=== PATIENT | male | born 1935 | race Caucasian/White ===

== ENCOUNTER → 2016-09-27 | Outpatient (REF) | payer MEDICARE, BC ==
[2016-09-27 11:46] LABS: ALBUMIN 3.3 GM/DL (3.2-5.2); ALBUMIN/GLOBULIN RATIO 1.14 (1.00-1.93); BILIRUBIN,TOTAL 0.4 MG/DL (0.2-1.0); CALCIUM LEVEL 8.9 MG/DL (8.8-10.2); CREATININE FOR GFR 1.56 MG/DL (0.70-1.30); GLOMERULAR FILTRATION RATE 45.7 (>35); POTASSIUM SERUM 4.5 MEQ/L (3.5-5.1); TOTAL PROTEIN 6.2 GM/DL (6.4-8.2); URIC ACID 4.1 MG/DL (3.5-7.2)
== END ==
LOC: M SFHCCLAY 07:36
PROVIDERS: ATTEND Family Medicine
DX: E11.9 Type 2 diabetes mellitus without complications (principal); E78.5 Hyperlipidemia, unspecified; M10.9 Gout, unspecified

== ENCOUNTER → 2016-10-24 | Outpatient (REF) | payer MEDICARE, BC ==
[2016-10-24 16:54] LABS: BASO % 0.3 % (0.0-1.0); EOS % 0.6 % (0.0-3.0); LARGE UNSTAINED CELL # 0.1 K/mm3 (0.0-0.4); LARGE UNSTAINED CELL % 2.2 % (0.0-4.0); LYMPH # 1.8 K/mm3 (1.5-4.5); LYMPH % 25.1 % (24.0-44.0); MEAN CORPUSCULAR HEMOGLOBIN 30.6 pg (27.0-33.0); MONO # 0.4 K/mm3 (0.0-0.8); MONO % 6.5 % (0.0-5.0); NEUTROPHILS # 4.2 K/mm3 (1.8-7.7); NEUTROPHILS % 65.4 % (36.0-66.0); PLATELET COUNT, AUTOMATED 199 k/mm3 (150-450); RED CELL DISTRIBUTION WIDTH 14.8 % (11.5-14.5); WHITE BLOOD COUNT 6.4 K/mm3 (4.0-10.0)
== END ==
LOC: M LABDRAWC 16:34
PROVIDERS: ATTEND Internal Medicine Cardiovascular Disease
DX: E11.9 Type 2 diabetes mellitus without complications (principal)

== ENCOUNTER → 2016-11-14 | Outpatient (REF) | payer MEDICARE, BC ==
[2016-11-14 12:32] LABS: CALCIUM LEVEL 9.8 MG/DL (8.8-10.2); CREATININE FOR GFR 2.17 MG/DL (0.70-1.30); GLOMERULAR FILTRATION RATE 31.2 (>35); POTASSIUM SERUM 4.3 MEQ/L (3.5-5.1)
== END ==
LOC: M LABDRAWC 11:39
PROVIDERS: ATTEND Nurse Practitioner Adult Health
DX: I50.22 Chronic systolic (congestive) heart failure (principal); R06.02 Shortness of breath

== ENCOUNTER → 2016-12-19 | Outpatient (REF) | payer MEDICARE, BC ==
[2016-12-19 12:42] LABS: CALCIUM LEVEL 9.2 MG/DL (8.8-10.2); CREATININE FOR GFR 1.81 MG/DL (0.70-1.30); GLOMERULAR FILTRATION RATE 38.4 (>35); POTASSIUM SERUM 4.5 MEQ/L (3.5-5.1)
== END ==
LOC: M SFHCCLAY 06:57
PROVIDERS: ATTEND Family Medicine
DX: E11.9 Type 2 diabetes mellitus without complications (principal)

== ENCOUNTER → 2016-12-29 | Outpatient (REF) | payer MEDICARE, BC ==
[2016-12-29 12:42] LABS: CALCIUM LEVEL 8.8 MG/DL (8.8-10.2); CREATININE FOR GFR 1.55 MG/DL (0.70-1.30); GLOMERULAR FILTRATION RATE 45.9 (>35); POTASSIUM SERUM 4.5 MEQ/L (3.5-5.1)
== END ==
LOC: M LABDRAWC 11:27
PROVIDERS: ATTEND Nurse Practitioner Adult Health
DX: R06.02 Shortness of breath (principal); I42.0 Dilated cardiomyopathy; I50.22 Chronic systolic (congestive) heart failure

== ENCOUNTER → 2017-02-06 | Outpatient (CLI) | payer MEDICARE, BC ==
--- NOTE | 2017-02-06 15:09 | REP ---
CHEST, TWO VIEWS: Two views of the chest are performed. Comparison 05/31/2016. There is mild cardiomegaly. There is no acute infiltrate. There is calcified ectatic aorta. Left pacemaker is noted. There are degenerative changes of the spine. IMPRESSION: Mild cardiomegaly. No acute pulmonary disease.
== END ==
LOC: M CLY 14:11
PROVIDERS: ATTEND Family Medicine
DX: R05 Cough (principal)

== ENCOUNTER → 2017-04-20 | Outpatient (REF) | payer MEDICARE, BC ==
[2017-04-20 12:11] LABS: CREATININE FOR GFR 1.73 MG/DL (0.70-1.30); GLOMERULAR FILTRATION RATE 40.5 (>35); POTASSIUM SERUM 4.7 MEQ/L (3.5-5.1)
== END ==
LOC: M SFHCCLAY 06:56
PROVIDERS: ATTEND Family Medicine
DX: E11.9 Type 2 diabetes mellitus without complications (principal)

== ENCOUNTER → 2017-07-27 | Outpatient (CLI) | payer MEDICARE, BC ==
--- NOTE | 2017-07-27 11:32 | REP ---
Clinical: Cough. Technique: PA and lateral. Comparison: 02/06/2017. Findings: Mediastinum and cardiac silhouette are stable. Cardiomegaly is again appreciated and unchanged. Lung merrill demonstrate chronic interstitial changes without acute consolidation, effusion, or pneumothorax. Skeletal structures demonstrate age-related degenerative changes. Impression: Chronic stable changes. No acute cardiopulmonary process. Signed by Maxwell Murphy MD 07/27/2017 11:24 A
== END ==
LOC: M CLY 10:59
PROVIDERS: ATTEND Nurse Practitioner Family
DX: R05 Cough (principal); R50.9 Fever, unspecified; I51.7 Cardiomegaly; J98.4 Other disorders of lung

== ENCOUNTER → 2017-07-27 | Outpatient (REF) | payer MEDICARE, BC ==
[2017-07-27 16:32] LABS: BASO % 0.3 % (0.0-1.0); IMMATURE GRANULOCYTE % 0.5 % (0-0); LYMPH # 0.9 10^3/uL (1.5-4.5); MEAN CORPUSCULAR HEMOGLOBIN 29.6 pg (27.0-33.0); MEAN CORPUSCULAR HGB CONC 32.5 g/dl (32.0-36.5); MEAN CORPUSCULAR VOLUME 91.2 fl (80.0-96.0); MONO # 0.4 10^3/uL (0.0-0.8); MONO % 5.9 % (0.0-5.0); NEUTROPHILS # 5.1 10^3/uL (1.8-7.7); NEUTROPHILS % 79.3 % (36.0-66.0); PLATELET COUNT, AUTOMATED 227 10^3/uL (150-450); WHITE BLOOD COUNT 6.4 10^3/uL (4.0-10.0)
[2017-07-27 20:17] LABS: CALCIUM LEVEL 10.3 MG/DL (8.8-10.2); CREATININE FOR GFR 2.78 MG/DL (0.70-1.30); GLOMERULAR FILTRATION RATE 23.4 (>35); POTASSIUM SERUM 4.8 MEQ/L (3.5-5.1)
== END ==
LOC: M SFHCCLAY 10:46
PROVIDERS: ATTEND Nurse Practitioner Family
DX: R05 Cough (principal); R50.9 Fever, unspecified

== ENCOUNTER → 2017-07-31 | Outpatient (REF) | payer MEDICARE, BC ==
[2017-07-31 18:56] LABS: CALCIUM LEVEL 9.1 MG/DL (8.8-10.2); CREATININE FOR GFR 2.27 MG/DL (0.70-1.30); GLOMERULAR FILTRATION RATE 29.6 (>35); POTASSIUM SERUM 4.4 MEQ/L (3.5-5.1)
== END ==
LOC: M SFHCCLAY 10:54
PROVIDERS: ATTEND Family Medicine
DX: N18.3 Chronic kidney disease, stage 3 (moderate) (principal)
CPT/HCPCS: 80048; G0463

== ENCOUNTER → 2017-08-07 | Outpatient (REF) | payer MEDICARE, BC ==
[2017-08-07 12:23] LABS: CALCIUM LEVEL 9.8 MG/DL (8.8-10.2); CREATININE FOR GFR 1.95 MG/DL (0.70-1.30); GLOMERULAR FILTRATION RATE 35.2 (>35); POTASSIUM SERUM 4.9 MEQ/L (3.5-5.1)
== END ==
LOC: M SFHCCLAY 08:34
PROVIDERS: ATTEND Family Medicine
DX: N18.3 Chronic kidney disease, stage 3 (moderate) (principal)

== ENCOUNTER → 2017-10-18 | Outpatient (REF) | payer MEDICARE, BC ==
[2017-10-18 12:01] LABS: ALBUMIN/GLOBULIN RATIO 0.86 (1.00-1.93); ALKALINE PHOSPHATASE 79 U/L (45-117); ALT/SGPT 73 U/L (12-78); ANION GAP 6 MEQ/L (8-16); AST/SGOT 26 U/L (7-37); BILIRUBIN,TOTAL 0.2 MG/DL (0.2-1.0); BLOOD UREA NITROGEN 46 MG/DL (7-18); CALCIUM LEVEL 9.2 MG/DL (8.8-10.2); CARBON DIOXIDE LEVEL 33 MEQ/L (21-32); CHLORIDE LEVEL 101 MEQ/L (98-107); CHOLESTEROL LEVEL 160 MG/DL (<200); CHOLESTEROL RISK RATIO 3.404 (<5); CREATININE FOR GFR 2.58 MG/DL (0.70-1.30); GLOMERULAR FILTRATION RATE 25.5 (>35); GLUCOSE, FASTING 147 MG/DL (70-100); HDL CHOLESTEROL 47 MG/DL (>40); LDL CHOLESTEROL 80.4 MG/DL (<100); NON-HDL-C 113 MG/DL; POTASSIUM SERUM 4.7 MEQ/L (3.5-5.1); SODIUM LEVEL 140 MEQ/L (136-145); TOTAL PROTEIN 6.5 GM/DL (6.4-8.2); TRIGLYCERIDES LEVEL 163 MG/DL (<150)
[2017-10-18 12:19] LABS: ESTIMATED AVERAGE GLUCOSE 171 MG/DL (60-110); HEMOGLOBIN A1c 7.6 %
== END ==
LOC: M SFHCCLAY 07:06
DX: E11.9 Type 2 diabetes mellitus without complications (principal)
CPT/HCPCS: 80053

== ENCOUNTER → 2017-10-30 | Outpatient (REF) | payer MEDICARE, BC ==
[2017-10-30 19:11] LABS: FERRITIN 30 NG/ML (26-388); IRON (FE) 48 UG/DL (65-175); PERCENT SATURATION 14.3 % (19.7-50.0); TOTAL IRON BINDING CAPACITY 336 UG/DL (250-450)
== END ==
LOC: M LAB REF 17:23
DX: D50.9 Iron deficiency anemia, unspecified (principal)
CPT/HCPCS: 83550

== ENCOUNTER → 2017-11-16 | Outpatient (REF) | payer MEDICARE, BC ==
[2017-11-16 18:48] LABS: VITAMIN B12 LEVEL 544 PG/ML (247-911)
== END ==
LOC: M LAB REF 17:16
DX: D53.1 Other megaloblastic anemias, not elsewhere classified (principal)
CPT/HCPCS: 82607

== ENCOUNTER → 2017-12-26 | Outpatient (REF) | payer MEDICARE, BC ==
[2017-12-26 14:46] LABS: FREE T4 0.19 NG/DL (0.76-1.46)
== END ==
LOC: M LAB REF 13:19
DX: E03.9 Hypothyroidism, unspecified (principal)
CPT/HCPCS: 84443

== ENCOUNTER → 2018-04-11 | Outpatient (REF) | payer MEDICARE, BC ==
[2018-04-11 12:03] LABS: ESTIMATED AVERAGE GLUCOSE 171 MG/DL (60-110); HEMOGLOBIN A1c 7.6 %
[2018-04-11 12:10] LABS: ALBUMIN 2.9 GM/DL (3.2-5.2); ALBUMIN/GLOBULIN RATIO 0.88 (1.00-1.93); ALKALINE PHOSPHATASE 76 U/L (45-117); ALT/SGPT 17 U/L (12-78); ANION GAP 9 MEQ/L (8-16); AST/SGOT 10 U/L (7-37); BILIRUBIN,TOTAL 0.3 MG/DL (0.2-1.0); BLOOD UREA NITROGEN 37 MG/DL (7-18); CALCIUM LEVEL 8.7 MG/DL (8.8-10.2); CARBON DIOXIDE LEVEL 29 MEQ/L (21-32); CHLORIDE LEVEL 105 MEQ/L (98-107); CREATININE FOR GFR 2.28 MG/DL (0.70-1.30); GLOMERULAR FILTRATION RATE 29.3 (>35); GLUCOSE, FASTING 220 MG/DL (70-100); POTASSIUM SERUM 3.9 MEQ/L (3.5-5.1); SODIUM LEVEL 143 MEQ/L (136-145); TOTAL PROTEIN 6.2 GM/DL (6.4-8.2)
== END ==
LOC: M SFHCCLAY 07:01
DX: E11.22 Type 2 diabetes mellitus with diabetic chronic kidney disease (principal); E03.9 Hypothyroidism, unspecified
CPT/HCPCS: 84443

== ENCOUNTER → 2018-05-10 | Outpatient (REF) | payer MEDICARE, BC | LOC: M SFHCCLAY 06:57 | DX: E03.9 Hypothyroidism, unspecified (principal) | CPT/HCPCS: 84443 ==

== ENCOUNTER → 2018-05-18 | Outpatient (CLI) | payer MEDICARE, BC ==
[2018-05-18 16:57] LABS: BASO % 0.3 % (0.0-1.0); EOS % 0.2 % (0.0-3.0); HEMATOCRIT 40.5 % (42.0-52.0); HEMOGLOBIN 13.2 g/dl (13.5-17.5); IMMATURE GRANULOCYTE % 0.4 % (0-3.0); LYMPH # 0.9 10^3/uL (1.5-4.5); LYMPH % 9.1 % (24.0-44.0); MEAN CORPUSCULAR HEMOGLOBIN 28.7 pg (27.0-33.0); MEAN CORPUSCULAR HGB CONC 32.6 g/dl (32.0-36.5); MONO # 0.6 10^3/uL (0.0-0.8); MONO % 5.9 % (0.0-5.0); NEUTROPHILS # 8.3 10^3/uL (1.8-7.7); NEUTROPHILS % 84.1 % (36.0-66.0); PLATELET COUNT, AUTOMATED 222 10^3/uL (150-450); RED CELL DISTRIBUTION WIDTH 13.8 % (11.5-14.5); WHITE BLOOD COUNT 9.8 10^3/uL (4.0-10.0)
[2018-05-18 17:27] LABS: ALBUMIN 2.8 GM/DL (3.2-5.2); ALBUMIN/GLOBULIN RATIO 0.82 (1.00-1.93); ALKALINE PHOSPHATASE 86 U/L (45-117); ALT/SGPT 27 U/L (12-78); ANION GAP 9 MEQ/L (8-16); AST/SGOT 20 U/L (7-37); BILIRUBIN,TOTAL 0.6 MG/DL (0.2-1.0); BLOOD UREA NITROGEN 41 MG/DL (7-18); CARBON DIOXIDE LEVEL 29 MEQ/L (21-32); CHLORIDE LEVEL 100 MEQ/L (98-107); CREATININE FOR GFR 2.04 MG/DL (0.70-1.30); GLOMERULAR FILTRATION RATE 33.4 (>35); GLUCOSE, FASTING 312 MG/DL (70-100); POTASSIUM SERUM 4.3 MEQ/L (3.5-5.1); SODIUM LEVEL 138 MEQ/L (136-145); TOTAL PROTEIN 6.2 GM/DL (6.4-8.2)
== END ==
LOC: M CLY 11:52
DX: R10.32 Left lower quadrant pain (principal)
CPT/HCPCS: 80053

== ENCOUNTER → 2018-05-18 | Outpatient (CLI) | payer MEDICARE, BC | LOC: M CLY 13:55 | DX: R10.32 Left lower quadrant pain (principal) | CPT/HCPCS: 74021; 80053 ==

== ENCOUNTER → 2018-06-27 | Outpatient (REF) | payer MEDICARE, BC ==
[2018-06-27 11:48] LABS: ESTIMATED AVERAGE GLUCOSE 237 MG/DL (60-110); HEMOGLOBIN A1c 9.9 %
[2018-06-27 12:19] LABS: ALBUMIN 2.7 GM/DL (3.2-5.2); ALKALINE PHOSPHATASE 100 U/L (45-117); ALT/SGPT 22 U/L (12-78); ANION GAP 10 MEQ/L (8-16); AST/SGOT 17 U/L (7-37); BILIRUBIN,TOTAL 0.4 MG/DL (0.2-1.0); BLOOD UREA NITROGEN 24 MG/DL (7-18); CALCIUM LEVEL 8.7 MG/DL (8.8-10.2); CARBON DIOXIDE LEVEL 27 MEQ/L (21-32); CHLORIDE LEVEL 103 MEQ/L (98-107); GLOMERULAR FILTRATION RATE 27.7 (>35); GLUCOSE, FASTING 230 MG/DL (70-100); POTASSIUM SERUM 4.2 MEQ/L (3.5-5.1); SODIUM LEVEL 140 MEQ/L (136-145); TOTAL PROTEIN 5.7 GM/DL (6.4-8.2)
[2018-06-30 00:08] LABS: VITAMIN D 1,25 DIHYDROXY 20.7 pg/mL (19.9-79.3)
== END ==
LOC: M SFHCCLAY 07:48
DX: N18.4 Chronic kidney disease, stage 4 (severe) (principal); E11.22 Type 2 diabetes mellitus with diabetic chronic kidney disease; E03.9 Hypothyroidism, unspecified; E55.9 Vitamin D deficiency, unspecified
CPT/HCPCS: 84443

== ENCOUNTER → 2018-08-17 | Outpatient (REF) | payer MEDICARE, BC ==
[2018-08-17 16:37] LABS: ALKALINE PHOSPHATASE 95 U/L (45-117); ALT/SGPT 17 U/L (12-78); ANION GAP 8 MEQ/L (8-16); AST/SGOT 14 U/L (7-37); BILIRUBIN,TOTAL 0.5 MG/DL (0.2-1.0); BLOOD UREA NITROGEN 31 MG/DL (7-18); CALCIUM LEVEL 8.5 MG/DL (8.8-10.2); CARBON DIOXIDE LEVEL 29 MEQ/L (21-32); CHLORIDE LEVEL 105 MEQ/L (98-107); CREATININE FOR GFR 2.24 MG/DL (0.70-1.30); GLUCOSE, FASTING 157 MG/DL (70-100); POTASSIUM SERUM 4.2 MEQ/L (3.5-5.1); SODIUM LEVEL 142 MEQ/L (136-145); TOTAL PROTEIN 6.2 GM/DL (6.4-8.2)
[2018-08-17 16:38] LABS: ALBUMIN 2.8 GM/DL (3.2-5.2); ALBUMIN/GLOBULIN RATIO 0.82 (1.00-1.93); THYROID STIMULATING HORMONE 0.332 uIU/ML (0.358-3.740)
[2018-08-17 17:13] LABS: ESTIMATED AVERAGE GLUCOSE 226 MG/DL (60-110); HEMOGLOBIN A1c 9.5 %
== END ==
LOC: M SFHCCLAY 10:15
DX: D75.1 Secondary polycythemia (principal); E11.22 Type 2 diabetes mellitus with diabetic chronic kidney disease; E03.9 Hypothyroidism, unspecified
CPT/HCPCS: 84443

== ENCOUNTER → 2018-10-25 | Outpatient (REF) | payer MEDICARE, BC ==
[2018-10-25 16:52] LABS: BASO % 0.2 % (0.0-1.0); HEMATOCRIT 36.7 % (42.0-52.0); HEMOGLOBIN 11.1 g/dl (13.5-17.5); LYMPH % 2.2 % (24.0-44.0); MEAN CORPUSCULAR HEMOGLOBIN 24.7 pg (27.0-33.0); MEAN CORPUSCULAR HGB CONC 30.2 g/dl (32.0-36.5); MEAN CORPUSCULAR VOLUME 81.7 fl (80.0-96.0); MONO # 0.2 10^3/uL (0.0-0.8); MONO % 2.2 % (0.0-5.0); NEUTROPHILS # 9.3 10^3/uL (1.8-7.7); NEUTROPHILS % 94.9 % (36.0-66.0); PLATELET COUNT, AUTOMATED 233 10^3/uL (150-450); RED BLOOD COUNT 4.49 10^6/uL (4.30-6.10); WHITE BLOOD COUNT 9.7 10^3/uL (4.0-10.0)
[2018-10-25 17:08] LABS: LYMPH # 0.2 10^3/uL (1.5-4.5)
[2018-10-25 17:21] LABS: ALBUMIN 2.9 GM/DL (3.2-5.2); BILIRUBIN,TOTAL 0.8 MG/DL (0.2-1.0); CALCIUM LEVEL 8.8 MG/DL (8.8-10.2); CREATININE FOR GFR 2.05 MG/DL (0.70-1.30); GLOMERULAR FILTRATION RATE 33.2 (>35); POTASSIUM SERUM 5.2 MEQ/L (3.5-5.1); TOTAL PROTEIN 6.8 GM/DL (6.4-8.2)
== END ==
LOC: M SFHCCLAY 13:36
PROVIDERS: ATTEND Family Medicine
DX: R50.9 Fever, unspecified (principal)

== ENCOUNTER → 2018-10-25 | Outpatient (CLI) | payer MEDICARE, BC ==
[~2018-10-25] MED LIST: AMIO200T PO; BENZ-18 PO; FEBU40TA PO; FLOM0.4C39 PO; HUMA100I3 SC; LIPI10TA PO; MIRA3350 PO; NITR4TASL SL; PROAAER10 INH; SYNT125T PO; TORS10TA3 PO; TRAD5TAB PO; TRUL10IN SC; XARE10TA PO
--- NOTE | 2018-10-25 14:33 | REP ---
Chest two views HISTORY: Cough Comparison: 07/27/2017 An increase in interstitial markings is present in the lungs consistent with chronic interstitial change. The cardiac silhouette is enlarged. The pulmonary vasculature is normal in appearance. The bony structure is intact. A pacemaker is present. IMPRESSION: 1. Chronic interstitial change. 2. Cardiomegaly.
== END ==
LOC: M CLY 13:56
PROVIDERS: ATTEND Family Medicine
DX: R91.8 Other nonspecific abnormal finding of lung field (principal); I51.7 Cardiomegaly; R05 Cough; Z95.0 Presence of cardiac pacemaker
CPT/HCPCS: 71046; 80053; 85025; G0463

== ENCOUNTER 2018-11-16 15:20 | Inpatient (IN) | payer MEDICARE, BC ==
[~2018-11-16] VITALS: Ht 167.6 cm; Wt 85.2 kg
[2018-11-16 16:30] VITALS: BP 120/79
[2018-11-16] MEDS ORDERED: GLUCOSE 4 GM CHEW TABLET PO PRN (17:45)
[2018-11-16] MEDS ORDERED: ACETAMINOPHEN TAB 650MG DOSE (2X325MG) PO PRN (17:45)
[2018-11-16] MEDS ORDERED: GLUCAGON FOR INJ 1 MG VIAL (J1610) SC PRN (17:45)
[2018-11-16] MEDS ORDERED: DEXTROSE 50% 50 ML SYRINGE IV PRN (17:45)
[2018-11-16] MEDS ORDERED: MIRA3350 PO (18:13)
[2018-11-16] MEDS ORDERED: BENZ-18 PO (18:13)
[2018-11-16] MEDS ORDERED: XARE10TA PO (18:13)
[2018-11-16] MEDS ORDERED: FEBU40TA PO (18:13)
[2018-11-16] MEDS ORDERED: SYNT125T PO (18:13)
[2018-11-16] MEDS ORDERED: PROAAER10 INH (18:13)
[2018-11-16] MEDS ORDERED: LIPI10TA PO (18:13)
[2018-11-16] MEDS ORDERED: AMIO200T PO (18:13)
[2018-11-16] MEDS ORDERED: TRAD5TAB PO (18:13)
[2018-11-16] MEDS ORDERED: NITR4TASL SL (18:13)
[2018-11-16] MEDS ORDERED: TRUL10IN SC (18:13)
[2018-11-16] MEDS ORDERED: TORS10TA3 PO (18:13)
[2018-11-16] MEDS ORDERED: HUMA100I3 SC (18:14)
[2018-11-16] MEDS ORDERED: FLOM0.4C39 PO (18:14)
[2018-11-16 18:27] LABS: BASO % 0.4 % (0.0-1.0); EOS # 0.1 10^3/uL (0.0-0.50); EOS % 0.9 % (0.0-3.0); HEMATOCRIT 30.5 % (42.0-52.0); HEMOGLOBIN 9.4 g/dl (13.5-17.5); LYMPH % 17.3 % (24.0-44.0); MEAN CORPUSCULAR HEMOGLOBIN 24.3 pg (27.0-33.0); MEAN CORPUSCULAR HGB CONC 30.8 g/dl (32.0-36.5); MEAN CORPUSCULAR VOLUME 78.8 fl (80.0-96.0); MONO # 0.5 10^3/uL (0.0-0.8); PLATELET COUNT, AUTOMATED 277 10^3/uL (150-450); RED BLOOD COUNT 3.87 10^6/uL (4.30-6.10); WHITE BLOOD COUNT 5.5 10^3/uL (4.0-10.0)
[2018-11-16] MEDS ORDERED: MIRALAX *UNIT DOSE* 17GM PACKET PO PRN (18:30)
[2018-11-16] MEDS ORDERED: BENZONATATE 100 MG CAP PO PRN (18:30)
[2018-11-16] MEDS ORDERED: ALBUTEROL 90 MCG/ACT 8GM HFA INHALER INH PRN (18:30)
[2018-11-16 18:44] LABS: CALCIUM LEVEL 8.4 MG/DL (8.8-10.2); CREATININE FOR GFR 1.97 MG/DL (0.70-1.30); GLOMERULAR FILTRATION RATE 34.7 (>35); POTASSIUM SERUM 4.3 MEQ/L (3.5-5.1)
--- NOTE | 2018-11-16 20:13 | CR ---
DATE OF CONSULTATION: 11/16/2018 CONSULTANTS: Dr. Oh for Urology. CONCLUSIONS: 1. History of apparent left renal cell carcinoma, metastatic, undergoing systemic therapy in [place], probable immunotherapy with recent development of gross hematuria with clots. 2. Atrial fibrillation, on Xarelto. 3. Insulin-dependent diabetes mellitus. 4. Hypothyroidism. 5. History of prior pacemaker defibrillator placement for atrial fibrillation. RECOMMENDATIONS: 1. Discontinue Xarelto and observe patient's hematuria . 2. If patient's hematuria resolves, then would followup with his oncologist in [place]. 3. If patient's hematuria does not resolve with cessation of anticoagulant therapy, then consideration should be given to the possibility of carrying out left renal embolization. This procedure is not available at this hospital. The patient would need to be transferred to his oncologist in [place] to make arrangements to carry this out. DISCUSSION: The patient is an 82-year-old male who approximately 2 years ago was found to have evidence of a mass in the left kidney. It is unclear from the patient and the as to how this was discovered. The patient had initial biopsy carried out percutaneously that was reportedly negative. Subsequent biopsy apparently did show evidence of malignancy, although there is some confusion on the part of the patient and his as to what type this is. He has been receiving systemic infusions in [place] by his oncologist. This is presumed to be immunotherapy. The patient has been feeling fairly well until recently when he developed the onset of gross hematuria yesterday morning. Last night, he developed increasing hematuria with clots, was unable to void. [facility] Barrera [facility] was placed and his bladder was decompressed. His hematuria seems to be improving since then. He is on Xarelto for atrial fibrillation and coronary artery disease. He has sustained no trauma. He has had no dysuria. He has had no fever. He has had no flank nor abdominal pain. PHYSICAL EXAMINATION: Pleasant, cooperative male, conversive, lying in bed in no distress. Back reveals no costovertebral angle (CVA) tenderness. His abdomen is protuberant but soft and nontender. Barrera catheter is in place draining slightly blood-tinged urine. Bladder is not distended to palpation or percussion. LABORATORY RESULTS: Creatinine is 1.97, BUN is 31, platelet count is 277,000. Hemoglobin is 9.4 grams, hematocrit is 30.5%, white blood cell count is 5500. CT scan was reportedly performed at the [facility], which showed a mass in the left kidney, retroperitoneal adenopathy and pleural effusions. I do not have these images nor the report to review.
[2018-11-16] MEDS: TAMSULOSIN 0.4 MG CAP PO SCH (20:18)
[2018-11-16] MEDS: ATORVASTATIN 10 MG TAB PO SCH (20:18)
[2018-11-16] MEDS: HumaLOG INSULIN (NovoLOG) PER UNIT SC SCH (20:18)
[2018-11-16 22:00] VITALS: BP 107/58
--- NOTE | 2018-11-16 22:52 | HPE ---
DATE OF ADMISSION: 11/16/2018 CHIEF COMPLAINT: Hematuria at [facility] HISTORY OF PRESENT ILLNESS: This is an 82-year-old gentleman with past medical history of atrial fibrillation, sick sinus syndrome, status post pacemaker, diabetes, gout, benign prostatic hypertrophy (BPH) with recently diagnosed what appears to be metastatic renal cell carcinoma who presents with transfer from [facility] for hematuria. The patient reportedly has this new diagnosis of renal cell carcinoma since July of last year. Per the patient and his , he has had multiple biopsies which have not entirely been conclusive. However, sought a consultation with Dr. Denise in [place] at the cancer center and they decided to proceed with immunotherapy. The patient's declined any chemotherapy. He apparently has already received one dose of immunotherapy at [place]. The patient started having gross hematuria since yesterday and went to [facility] for further evaluation today. They called for transfer of this patient as they did not have urologic services there. I asked the provider at [facility] to reach Dr. Denise at [place] as I felt this was likely an oncologic problem from newly diagnosed renal cell carcinoma. However, Dr. Denise said that we could proceed with transferring the patient here since it is closer and urology and nephrology consult should be sufficient. At this time, the patient denies any complaints and is not having any pain. His primary complaint is hematuria for which he has a leg bag Barrera catheter that was placed at [facility]. REVIEW OF SYSTEMS: Negative 14 out of 14 systems, except as noted above. PAST MEDICAL HISTORY: As noted above in the history of present illness. PAST SURGICAL HISTORY: The patient has a history of carpal tunnel surgery and back surgery, as well as knee meniscal surgery, mastoidectomy, pacemaker placement, history of nasal tip plasty. MEDICATIONS: The patient's medications are reconciled by the med historian and he is currently on: - lispro sliding scale, - nitroglycerine sublingual as needed for chest pain - torsemide 10 mg daily - Tradjenta 5 mg by mouth daily - Trulicity 0.75 mg subcutaneous every week - albuterol 2 puffs every 4 hours as needed for shortness of breath - amiodarone 200 mg by mouth daily - Lipitor 10 mg by mouth at bedtime (q.h.s.) - benzonatate 100 mg by mouth three times a day as needed for cough - Uloric 40 mg by mouth daily - Synthroid 125 mcg by mouth every a.m. - MiraLAX one packet by mouth daily as needed for constipation - tamsulosin 0.4 mg by mouth at bedtime (q.h.s.) ALLERGIES: The patient is allergic to shellfish. SOCIAL HISTORY: The patient lives in [facility] with his . No smoking, alcohol, drugs. FAMILY HISTORY: The patient has a father who had bone cancer and a sister with lung cancer. PHYSICAL EXAMINATION: On exam, the patient's vitals, he is currently afebrile at 98.3, blood pressure 120/79, pulse is 70, respiratory rate 16, saturating 99% on room air. GENERAL: He is in no acute distress and very pleasant. HEENT EXAM: Oropharynx clear. CARDIOVASCULAR: Regular rate and rhythm. No murmurs, rubs or gallops. LUNGS: Clear to auscultation bilaterally. ABDOMEN: Soft, nontender, nondistended. EXTREMITIES: No clubbing, cyanosis or edema. GENITOURINARY (): The patient does have a leg bag. A Barrera catheter that has blood tinged urine. NEURO: He is alert and oriented, follows simple commands. No focal neurologic deficits. LABORATORY: Reveals hemoglobin of 9.4, hematocrit of 30, white count of 5.5. Chemistry shows calcium of 4.3, creatinine of 1.97. The patient also had labs at the outside hospital. His hemoglobin there this morning was 9.8. His creatinine was 2. IMAGING: He did have a CT of the abdomen and pelvis done, which shows a left renal mass, which is grossly unchanged. He had a left periaortic lymphadenopathy that has increased in size compared to prior. He also had a larger more [employer] mass that is grossly unchanged. He has multiple metastasis that has progressed since prior study. There is also note of a small left-sided effusion. A CT of the pelvis was unremarkable. ASSESSMENT AND PLAN: This is an 82-year-old gentleman with past medical history of sick sinus syndrome, status post pacemaker, atrial fibrillation, diabetes, hyperlipidemia, chronic kidney disease (CKD), also with new diagnosis of renal cell carcinoma, who presents with one day history of hematuria. PROBLEMS: 1. Hematuria, this is likely secondary to his known renal cell carcinoma. He does have a Barrera catheter already in place. I have called urology and Dr. Oh has seen him this evening. Per his discussion with me, he felt this patient should be transferred to [place] for aggressive therapy, given urologist is there. [facility] had already had spoken to Dr. Denise prior to transferring the patient here. However, we discussed with Dr. Denise plans as far treatment for this patient. Her number is [phone]. At this time, his hemoglobin is stable and we are obviously holding his hold Xarelto, which he takes for his atrial fibrillation. 2. History of atrial fibrillation. The patient currently rate controlled and we will continue his home amiodarone. We are obviously holding his home Xarelto given the hematuria. His soft sugar cutter is Dr. Israel at [facility]. 3. Diabetes. At this time, I have just put him on a sliding scale and held his home Tradjenta and Trulicity. 4. Hypothyroidism. Continue his home Synthroid. 5. History of gout. Continue his home Uloric. 6. Hyperlipidemia. Continue his home Lipitor. 7. Deep vein thrombosis (DVT) prophylaxis is contraindicated at this time due to hematuria.
[2018-11-17] MEDS: LEVOTHYROXINE 125MCG TABLET (0.125MG) PO SCH (05:39)
[2018-11-17 06:00] VITALS: BP 112/64
[2018-11-17 06:36] LABS: HEMATOCRIT 28.3 % (42.0-52.0); HEMOGLOBIN 8.8 g/dl (13.5-17.5); MEAN CORPUSCULAR HEMOGLOBIN 24.4 pg (27.0-33.0); MEAN CORPUSCULAR HGB CONC 31.1 g/dl (32.0-36.5); MEAN CORPUSCULAR VOLUME 78.4 fl (80.0-96.0); PLATELET COUNT, AUTOMATED 253 10^3/uL (150-450); RED BLOOD COUNT 3.61 10^6/uL (4.30-6.10); WHITE BLOOD COUNT 4.7 10^3/uL (4.0-10.0)
[2018-11-17 06:56] LABS: CALCIUM LEVEL 8.4 MG/DL (8.8-10.2); CREATININE FOR GFR 1.93 MG/DL (0.70-1.30); GLOMERULAR FILTRATION RATE 35.5 (>35); POTASSIUM SERUM 4.1 MEQ/L (3.5-5.1)
[2018-11-17] MEDS: HumaLOG INSULIN (NovoLOG) PER UNIT SC SCH ×4 (08:43→20:48)
[2018-11-17] MEDS ORDERED: FEBUXOSTAT 40 MG TABLET (ULORIC) PO SCH (09:00)
[2018-11-17] MEDS ORDERED: AMIODARONE 200 MG TAB (PACERONE) PO SCH (09:00)
--- NOTE | 2018-11-17 09:01 | IPNPDOC ---
Assessment/Plan Date Seen The patient was seen on 11/17/18. Plan/VTE VTE Prophylaxis Ordered?: Yes Plan Discussed with patient and , will continue to hold Xarelto, may be discharged at any time, recommend follow up with his oncologist. Subjective Review oF Systems Chief Complaint The patient is a 83-year-old male admitted with a reason for visit of Hematuria. Events since Last Encounter He had a good night, is comfortable this am. He reports that he has noted no hematuria since around 2 am. He denies pain. His Xarelto was discontinued. Will remove thomas catheter this am and observe today. Would favor continued cessation of Xarelto and have patient follow up with his oncologist after discharge. he may be discharged at any time from my standpoint. Objective Physical Examination General Exam: Alert, Cooperative, No Acute Distress Other physical findings thomas catheter is draining clear urine this am Vital Signs/I&O Vital Signs Date Time Temp Pulse Resp B/P (MAP) Pulse Ox O2 Delivery O2 Flow Rate FiO2 11/17/18 06:00 97.8 71 18 112/64 (80) 95 I&O- Last 24 Hours up to 6 AM 11/17/18 06:00 Intake Total 240 ml Output Total 200 ml Balance 40 ml Laboratory Data Labs 24H Laboratory Tests 2 11/16/18 17:59: Immature Granulocyte % (Auto) 0.4, White Blood Count 5.5, Red Blood Count 3.87L, Hemoglobin 9.4L, Hematocrit 30.5L, Mean Corpuscular Volume 78.8L, Mean Corpuscular Hemoglobin 24.3L, Mean Corpuscular Hemoglobin Concent 30.8L, Red Cell Distribution Width 17.0H, Platelet Count 277, Neutrophils (%) (Auto) 72.0H, Lymphocytes (%) (Auto) 17.3L, Monocytes (%) (Auto) 9.0H, Eosinophils (%) (Auto) 0.9, Basophils (%) (Auto) 0.4, Neutrophils # (Auto) 4.0, Lymphocytes # (Auto) 1.0L, Monocytes # (Auto) 0.5, Eosinophils # (Auto) 0.1, Basophils # (Auto) 0.0, Nucleated Red Blood Cells % (auto) 0.0, Anion Gap 10, Glomerular Filtration Rate 34.7L, Blood Urea Nitrogen 31H, Creatinine 1.97H, Sodium Level 139, Potassium Level 4.3, Chloride Level 102, Carbon Dioxide Level 27, Calcium Level 8.4L 11/16/18 20:06: Bedside Glucose (Misc Panel) 244H 11/17/18 06:20: Nucleated Red Blood Cells % (auto) 0.0, Anion Gap 6L, Glomerular Filtration Rate 35.5, Blood Urea Nitrogen 31H, Creatinine 1.93H, Sodium Level 138, Potassium Level 4.1, Chloride Level 103, Carbon Dioxide Level 29, Calcium Level 8.4L CBC/BMP Laboratory Tests 11/16/18 17:59 Red Blood Count 3.87 L, Mean Corpuscular Volume 78.8 L, Mean Corpuscular Hemoglobin 24.3 L, Mean Corpuscular Hemoglobin Concent 30.8 L, Red Cell Distribution Width 17.0 H, Neutrophils (%) (Auto) 72.0 H, Lymphocytes (%) (Auto) 17.3 L, Monocytes (%) (Auto) 9.0 H, Eosinophils (%) (Auto) 0.9, Basophils (%) (Auto) 0.4, Neutrophils # (Auto) 4.0, Lymphocytes # (Auto) 1.0 L, Monocytes # (Auto) 0.5, Eosinophils # (Auto) 0.1, Basophils # (Auto) 0.0, Calcium Level 8.4 L 11/17/18 06:20 Red Blood Count 3.61 L, Mean Corpuscular Volume 78.4 L, Mean Corpuscular Hemoglobin 24.4 L, Mean Corpuscular Hemoglobin Concent 31.1 L, Red Cell Distribution Width 17.0 H, Calcium Level 8.4 L FSBS Laboratory Tests Test 11/16/18 20:06 Range/Units Bedside Glucose (Misc Panel) 244 83-110 MG/DL TIFFANIE CLARKE MD Nov 17, 2018 09:01
[2018-11-17 10:00] VITALS: BP 102/48
[2018-11-17 14:00] VITALS: BP 111/72
--- NOTE | 2018-11-17 15:38 | IPN ---
DATE: 11/17/2018 SUBJECTIVE: The patient tells me that he is feeling well. He denies any specific complaints at this time. He denies any further bleeding. He tells me that he feels better since having the catheter in. OBJECTIVE: VITAL SIGNS: Temperature 97.8, pulse 71, respiratory rate 18, blood pressure 112/64, oxygen saturation 95% on room air. GENERAL: He is a very pleasant, elderly, man who is somewhat hard of hearing. He is accompanied by his . HEENT: Cranial nerves II through XII are grossly intact. He has moist mucous membranes. No elevation in central venous pressure. CARDIOVASCULAR EXAM: S1, S2. Regular. RESPIRATORY EXAM: Clear. ABDOMINAL EXAM: Obese. EXTREMITIES: No clubbing, cyanosis or edema. GENITOURINARY: Barrera catheter is draining clear, yellow urine. LABORATORY STUDIES: WBC 4.7, hemoglobin 8.8, platelet count 253. Chemistry panel: Sodium 138, potassium 4.1, chloride 103, bicarbonate 29, BUN 31, creatinine 1.9. No new imaging. ASSESSMENT AND PLAN: This is an 83-year-old man who presented with hematuria and acute urinary retention. 1. Hematuria and acute urinary retention, likely related to his metastatic renal cell carcinoma and Xarelto. The patient is improved with Barrera catheter placement. He is draining clear, yellow urine at this time. His Xarelto is on hold. Urology's help has been greatly appreciated. I did discuss the plan with the patient and with urology. We will monitor the patient's hemoglobin for an additional 24 hours. Should it remain stable and he has no further hematuria, we will consider discontinuing the Barrera catheter and giving him a voiding trial; however, should he fail it, would potentially discharge him with Barrera catheter in place; however, if he continues to have bleeding, he may require an embolization; however, at this time, it does not appear necessary. 2. Atrial fibrillation. A lengthy discussion was had. He is on amiodarone for rate control. We are holding his Xarelto. He is at risk for stroke. He is aware this is in the setting of active bleeding. He wished to forgo, he tells me that he has had recurrent bleeding five times in the past while on Xarelto. 3. Diabetes. He is on sliding scale. Fingersticks are well controlled. 4. Hypothyroidism. He is continued on Synthroid. 5. Gout. He is continued on Uloric. 6. Dyslipidemia. He is continued on Lipitor. 7. Deep vein thrombosis (DVT) prophylaxis. Sequentials. DISPOSITION: Possibly home as early as tomorrow.
[2018-11-17 18:00] VITALS: BP 122/73
--- NOTE | 2018-11-17 19:41 | CR ---
DATE OF CONSULTATION: 11/17/2018 REQUESTING PHYSICIAN: Dr. Ana Rosa [place] CONSULTING PHYSICIAN: Dr. Moya REASON FOR CONSULTATION: Management of chronic kidney disease, hematuria in this patient with history of a renal mass. CHIEF COMPLAINT: Patient was transferred from [facility] because of hematuria. HISTORY OF PRESENT ILLNESS: Mr. Zaire Patton is an 83-year-old male with past medical history of chronic kidney disease, stage III to early stage IV, with a best baseline creatinine of 1.5. He follows up with Dr. Rodriguez in nephrology clinic. He was recently diagnosed with metastatic urothelial carcinoma after left renal biopsy. He initially declined any chemotherapy, but apparently he went to [place] for immunotherapy. He also has history of atrial fibrillation, on anticoagulation. Patient was in his usual state of health. Then he suddenly started having hematuria. He presented to the [facility], and because of unavailability of transporter radiology and urologist at [facility], patient was transferred to [facility] for higher level of care. When he was transferred last night, he had a Barrera catheter, and he was having hematuria. He was seen by urology, and the recommendation was to stop the anticoagulation. Patient reports that his Barrera catheter has been removed, and his hematuria has been improving since yesterday. He presented with a creatinine of 1.97, which is slightly higher than his baseline. Nephrology service was also involved for further help in the management of this patient with history of mass in the left kidney and hematuria. PAST MEDICAL HISTORY: 1. Chronic kidney disease, stage III to early stage IV. Creatinine fluctuates between 1.5-1.9. 2. History of metastatic urothelial cancer in the left kidney. 3. History of atrial fibrillation, on anticoagulation with Xarelto. 4. Diabetes mellitus, type 2, insulin dependent. 5. Hypothyroidism. 6. Chronic gout secondary to chronic kidney disease. 7. History of chronic systolic congestive heart failure. 8. BPH. PAST SURGICAL HISTORY: 1. Status post pacemaker placement for sick sinus syndrome. 2. History of carpal tunnel surgery. 3. Back surgery. 4. Meniscal surgery of the knee. 5. Status post mastoidectomy. 6. Nasal tip plasty. 7. CT-guided renal biopsy. ALLERGIES: Patient is allergic to shellfish. FAMILY HISTORY: No significant family history of end-stage renal disease requiring hemodialysis. Sister has lung cancer. SOCIAL HISTORY: Patient lives at [facility]. He denies any illicit drug abuse, alcohol abuse, or smoking. REVIEW OF SYSTEMS: CONSTITUTIONAL: Patient denies any fevers or chills. EYES: He denies any blurry vision, double vision. ENT: He denies any dysphagia or odynophagia or ear discharge. CARDIOVASCULAR: He denies any chest pain or palpitations. RESPIRATORY: He denies any shortness of breath or cough. GASTROINTESTINAL: He denies any nausea or vomiting. GENITOURINARY: He reports hematuria. MUSCULOSKELETAL: He denies any muscle aches or pains. HEMATOLOGIC/ONCOLOGIC: He reports recent diagnosis of metastatic left-sided urothelial carcinoma. ENDOCRINE: He reports history of diabetes mellitus, type 2. SKIN: He denies any rashes or ulcers. CENTRAL NERVOUS SYSTEM: He denies any strokes or seizures. PSYCHIATRIC: He denies any depression or anxiety. All other review of systems is negative. PHYSICAL EXAMINATION: GENERAL: Patient is awake, alert, oriented times three, lying in bed. No apparent distress. VITAL SIGNS: Temperature is 97.8 degrees Fahrenheit, blood pressure 111/72, pulse is 74, respiratory rate of 18, saturating 97% on room air. HEAD AND NECK: Extraocular muscles intact. Pupils equally round and reactive to light. Mucous membranes are moist. Neck is supple. There is no jugular venous distention (JVD). CARDIOVASCULAR: S1, S2, regular rate. Left anterior chest wall pacemaker was noted. RESPIRATORY: Chest is clear to auscultation bilaterally. Bilateral equal air entry. No rales or rhonchi. ABDOMEN: Soft, obese. Positive bowel sounds. Nontender. No organomegaly. GENITOURINARY: Bladder is not palpable. No hernia was noted. Barrera catheter has been removed. MUSCULOSKELETAL: No clubbing or cyanosis. Pulses are 2+. CENTRAL NERVOUS SYSTEM: No focal deficit. Power is 5/5 in all extremities. SKIN: No rashes or ulcers. LABORATORY REVIEW: CBC showed a WBC 4.7, hemoglobin 8.8, platelets are 253. There is no urinalysis available. BMP showed sodium 138, potassium 4.1, chloride 103, bicarbonate 29, BUN 31, creatinine is 1.9, glucose 189, calcium is 8.4. CURRENT INPATIENT MEDICATIONS: - Tylenol as needed - albuterol as needed - amiodarone 200 mg by mouth daily - Lipitor 10 mg at bedtime - Tessalon 100 mg by mouth three times a day as needed - Uloric 40 mg by mouth daily - levothyroxine 125 mcg daily - MiraLax as needed - Flomax 0.4 mg by mouth at bedtime HOME MEDICATIONS: Include: - ProAir as needed - amiodarone 200 mg by mouth daily - Lipitor 10 mg at bedtime - Uloric 40 mg daily - insulin Lispro sliding scale - levothyroxine 125 mcg daily - Tradjenta 5 mg by mouth daily - nitroglycerine as needed - MiraLax 17 grams as needed - Flomax 0.4 mg daily - torsemide 10 mg daily - Trulicity 0.7 mcg subcutaneous once a week - Xarelto 10 mg by mouth daily ASSESSMENT: An 83-year-old male with past medical history of chronic kidney disease, stage III, chronic gout, chronic systolic congestive heart failure, diabetes mellitus, type 2, hypothyroidism, recent diagnosis of metastatic left-sided urothelial cancer, admitted at this time with hematuria. PLAN: 1. Hematuria. It is most likely secondary to left-sided urothelial cancer and use of Xarelto. Xarelto has been stopped. Patient was seen by urology. No intervention needed at this point; however, if patient's starts bleeding, he might need to be transferred to his oncologist in [place] for embolization of the mass. 2. Anemia secondary to blood loss. Hemoglobin is 8.8, which is optimal at this point. No need of blood transfusion. 3. Chronic gout secondary to chronic kidney disease. Continue current dose of Uloric 40 mg by mouth daily. 4. Chronic kidney disease, stage III. Patient's best baseline creatinine is 1.5 as of clinic records. Creatinine is 1.9, which is close to his baseline. I am going to restart his home dose of diuretic. 5. Chronic systolic congestive heart failure. Restart home dose of torsemide 10 mg by mouth daily. 6. Diabetes mellitus, type 2, insulin dependent. Continue insulin sliding scale. It is okay to restart Tradjenta and Trulicity when he is discharged from the hospital. 7. Metastatic left-sided urothelial cancer. Patient started following up with oncology at [place]. He is getting immunotherapy. Rest of the management will be done as outpatient. Thank you for involving me in the care of this patient. I shall be happy to follow the patient along with you tomorrow morning.
[2018-11-17] MEDS: TAMSULOSIN 0.4 MG CAP PO SCH (20:48)
[2018-11-17] MEDS: ATORVASTATIN 10 MG TAB PO SCH (20:48)
[2018-11-17 22:00] VITALS: BP 110/53
[2018-11-18 02:00] VITALS: BP 113/57
[2018-11-18] MEDS: LEVOTHYROXINE 125MCG TABLET (0.125MG) PO SCH (05:35)
[2018-11-18 05:45] LABS: HEMATOCRIT 31.2 % (42.0-52.0); HEMOGLOBIN 9.6 g/dl (13.5-17.5); MEAN CORPUSCULAR HEMOGLOBIN 24.3 pg (27.0-33.0); MEAN CORPUSCULAR HGB CONC 30.8 g/dl (32.0-36.5); PLATELET COUNT, AUTOMATED 279 10^3/uL (150-450); RED BLOOD COUNT 3.95 10^6/uL (4.30-6.10); WHITE BLOOD COUNT 5.3 10^3/uL (4.0-10.0)
[2018-11-18 06:00] VITALS: BP 103/66
[2018-11-18 06:06] LABS: CALCIUM LEVEL 8.8 MG/DL (8.8-10.2); CREATININE FOR GFR 1.94 MG/DL (0.70-1.30); GLOMERULAR FILTRATION RATE 35.3 (>35); POTASSIUM SERUM 4.3 MEQ/L (3.5-5.1)
[2018-11-18] MEDS ORDERED: TORSEMIDE 10 MG TABLET PO SCH (09:00)
--- NOTE | 2018-11-19 10:52 | DSES ---
DATE OF ADMISSION: 11/16/2018 DATE OF DISCHARGE: 11/18/2018 DISCHARGE DIAGNOSIS: Hematuria. SECONDARY DIAGNOSES: Metastatic renal cell carcinoma. Medication adverse effect related to Xarelto. Atrial fibrillation. Diabetes. Hypothyroidism. Gout. Dyslipidemia. HOSPITAL COURSE: The patient is an 83-year-old man who has had recurrent episodes of bleeding related to Xarelto, usually with epistaxis, however he began having hematuria on the day prior to admission, passing clots in his urine to the point where he was unable to pass any further urine and was retaining. He did present to the emergency room, had a Barrera catheter placed, and drained several clots. His Xarelto was held. His symptoms did resolved. There was some concern that if it failed to resolve he would require renal embolization via interventional radiology, however this was not necessary. His symptoms did rivas with catheter placement, ceasing Xarelto. At this time, his Barrera catheter was removed. He was able to void independently with no further bleeding. He did not require any blood transfusions during his stay. SUBJECTIVE: This morning the patient tells me he is feeling well. He would like to go home. He is to follow-up with his oncologist tomorrow morning. OBJECTIVE: VITAL SIGNS: Temperature 98.4, pulse 80, respiratory rate 18, blood pressure 103/66, oxygen saturation 97% on room air. GENERAL: He is a very pleasant hard of hearing man sitting up in bed. He is in no distress. He is accompanied by his . HEENT: Cranial nerves II through XII grossly intact. He has moist mucous membranes. No elevation of central venous pressure (CVP). CARDIOVASCULAR EXAM: S1 and S2 regular. RESPIRATORY EXAM: Clear. ABDOMINAL EXAM: Benign. EXTREMITIES: No clubbing, cyanosis, or edema. LABORATORY STUDIES: WBC 5.3, hemoglobin 9.6, platelet count 279. Chemistry panel - sodium 136, potassium 4.3, chloride 103, bicarb 28, BUN 32, creatinine 1.9. No new imaging or microbiology. ASSESSMENT/PLAN: This is an 83-year-old man with hematuria and acute urinary retention. PROBLEMS: 1. Hematuria and urinary retention secondary to clots and bleeding related to a combination of Xarelto and his metastatic renal cell carcinoma. I suspect it did resolve with holding his Xarelto and Barrera catheter placement. Since then, his catheter has been removed. He is voiding independently. I did suggest that he follow-up with his outpatient oncologist, urology, his primary care provider and nephrology. 2. Atrial fibrillation. I did have a lengthy conversation with the patient regarding his increased stroke risk while being off Xarelto. He is aware of this and understands the risk and requests to remain off of it as well and understands why the risks are outweighing the benefits in his current predicament. He was rate controlled with amiodarone. 3. Diabetes. He was on a sliding scale. 4. Hypothyroidism. He was continued on Synthroid. 5. Gout. He was continued on Uloric. 6. Dyslipidemia. He was continued on Lipitor. 7. Chronic kidney disease. Stable. He was continued on torsemide during his stay. He was seen by nephrology and urology services during this hospitalization. DISPOSITION: He is to follow-up with his primary care physician in seven days. Follow-up with oncology tomorrow. Follow-up with nephrology as scheduled. Follow-up with urology in two weeks. His activity is as prior to admission. His diet is as prior to admission. He is to return to the ER if symptoms worsen. Medications at the time of discharge are unchanged from the time of admission other than Xarelto being on hold.
== END 2018-11-18 08:40 | disposition home or self-care (01) | DRG 813 ==
LOC: M MS5PR 16:30
PROVIDERS: ADMIT Internal Medicine; ATTEND Internal Medicine
DX: D68.32 Hemorrhagic disorder due to extrinsic circulating anticoagulants (principal); C68.0 Malignant neoplasm of urethra; C79.02 Secondary malignant neoplasm of left kidney and renal pelvis; I50.22 Chronic systolic (congestive) heart failure; N18.3 Chronic kidney disease, stage 3 (moderate); R31.9 Hematuria, unspecified; I48.91 Unspecified atrial fibrillation; E11.22 Type 2 diabetes mellitus with diabetic chronic kidney disease; M10.30 Gout due to renal impairment, unspecified site; R33.9 Retention of urine, unspecified; N40.1 Benign prostatic hyperplasia with lower urinary tract symptoms; T45.515A Adverse effect of anticoagulants, initial encounter; D50.0 Iron deficiency anemia secondary to blood loss (chronic); E78.5 Hyperlipidemia, unspecified; E03.9 Hypothyroidism, unspecified; Z95.0 Presence of cardiac pacemaker; Z79.84 Long term (current) use of oral hypoglycemic drugs; Z79.899 Other long term (current) drug therapy; Z91.013 Allergy to seafood; Z79.01 Long term (current) use of anticoagulants

== ENCOUNTER → 2018-12-10 | Outpatient (REF) | payer MEDICARE, BC ==
[2018-12-10 11:44] LABS: CALCIUM LEVEL 8.6 MG/DL (8.8-10.2); CREATININE FOR GFR 2.21 MG/DL (0.70-1.30); GLOMERULAR FILTRATION RATE 30.3 (>35); POTASSIUM SERUM 4.1 MEQ/L (3.5-5.1); THYROID STIMULATING HORMONE 1.96 uIU/ML (0.358-3.740)
[2018-12-10 11:49] LABS: HEMOGLOBIN A1c 8.4 %
== END ==
LOC: M SFHCCLAY 07:47
PROVIDERS: ATTEND Family Medicine
DX: E11.22 Type 2 diabetes mellitus with diabetic chronic kidney disease (principal); E03.9 Hypothyroidism, unspecified

== ENCOUNTER → 2019-02-11 | Outpatient (REF) | payer MEDICARE, BC ==
[2019-02-11 11:31] LABS: ALBUMIN 2.7 GM/DL (3.2-5.2); BILIRUBIN,TOTAL 0.5 MG/DL (0.2-1.0); CALCIUM LEVEL 8.8 MG/DL (8.8-10.2); CHOLESTEROL RISK RATIO 2.224 (<5); CREATININE FOR GFR 2.38 MG/DL (0.70-1.30); GLOMERULAR FILTRATION RATE 27.9 (>35); POTASSIUM SERUM 4.2 MEQ/L (3.5-5.1); TOTAL PROTEIN 6.4 GM/DL (6.4-8.2)
[2019-02-11 12:36] LABS: HEMOGLOBIN A1c 8.2 %
== END ==
LOC: M SFHCCLAY 07:07
PROVIDERS: ATTEND Family Medicine
DX: I50.9 Heart failure, unspecified (principal); E11.22 Type 2 diabetes mellitus with diabetic chronic kidney disease; E78.5 Hyperlipidemia, unspecified

== ENCOUNTER → 2019-05-24 | Outpatient (REF) | payer MEDICARE, BC ==
[~2019-05-24] MED LIST changes: -FEBU40TA PO; +FEBU40TA4 PO
[2019-05-24 12:54] LABS: CALCIUM LEVEL 8.5 MG/DL (8.8-10.2); CREATININE FOR GFR 1.92 MG/DL (0.70-1.30); GLOMERULAR FILTRATION RATE 35.7 (>35); POTASSIUM SERUM 4.4 MEQ/L (3.5-5.1); THYROID STIMULATING HORMONE 9.08 uIU/ML (0.358-3.740); THYROXINE (T4) 9.9 UG/DL (4.5-12.0)
[2019-05-24 13:51] LABS: HEMOGLOBIN A1c 8.9 %
== END ==
LOC: M SFHCCLAY 06:59
PROVIDERS: ATTEND Family Medicine
DX: E11.22 Type 2 diabetes mellitus with diabetic chronic kidney disease (principal); E03.9 Hypothyroidism, unspecified

== ENCOUNTER → 2019-10-02 | Outpatient (REF) | payer MEDICARE, BC ==
[2019-10-02 12:51] LABS: ALBUMIN 3.6 GM/DL (3.2-5.2); BILIRUBIN,TOTAL 0.9 MG/DL (0.2-1.0); CALCIUM LEVEL 8.9 MG/DL (8.8-10.2); CREATININE FOR GFR 2.8 MG/DL (0.70-1.30); GLOMERULAR FILTRATION RATE 23.1 (>35); POTASSIUM SERUM 3.9 MEQ/L (3.5-5.1); TOTAL PROTEIN 6.5 GM/DL (6.4-8.2)
[2019-10-02 13:01] LABS: HEMOGLOBIN A1c 6.9 %
== END ==
LOC: M SFHCCLAY 07:01
PROVIDERS: ATTEND Family Medicine
DX: E03.9 Hypothyroidism, unspecified (principal)

== ENCOUNTER → 2019-11-05 | Outpatient (REF) | payer MEDICARE, BC ==
[2019-11-05 12:01] LABS: TROPONIN I 0.19 NG/ML (< 0.10)
== END ==
LOC: M LAB REF 11:13 → M LABDRAWC 11:13
DX: I50.9 Heart failure, unspecified (principal)

== ENCOUNTER → 2019-11-15 | Outpatient (REF) | payer MEDICARE, BC ==
[2019-11-15 16:22] LABS: TROPONIN I 0.17 NG/ML (< 0.10)
== END ==
LOC: M LABDRAWC 15:44
PROVIDERS: ATTEND Internal Medicine Hematology
DX: I50.9 Heart failure, unspecified (principal)

== ENCOUNTER → 2019-11-25 | Outpatient (REF) | payer MEDICARE, BC ==
[2019-11-25 11:35] LABS: TROPONIN I 0.17 NG/ML (< 0.10)
== END ==
LOC: M LABDRAWC 11:15
PROVIDERS: ATTEND Internal Medicine Hematology
DX: I50.9 Heart failure, unspecified (principal)

== ENCOUNTER → 2019-12-24 | Outpatient (CLI) | payer MEDICARE, BC | LOC: M LABSMTC 13:13 | PROVIDERS: ATTEND Family Medicine | DX: Z11.59 Encounter for screening for other viral diseases (principal) ==

== ENCOUNTER → 2020-03-11 | Outpatient (CLI) | payer MEDICARE, BC ==
--- NOTE | 2020-03-11 13:44 | REP ---
REASON: Pain after strain. The bones are demineralized. The glenohumeral and acromioclavicular relation ship is within normal limits. There is humeral head marginal osteophytosis. Calcifications are seen in the soft tissue lateral to the greater humeral tuberosity. There is no acute fracture, dislocation or subluxation. IMPRESSION: 1. Chronic changes as described above. 2. Soft tissue calcifications as described above suggestive of either chronic calcific supraspinatus tendinitis or shannan calcific subdeltoid bursitis. Electronically Signed by Dario Griffin DO 03/11/2020 04:08 P
== END ==
LOC: M CLY 10:40
PROVIDERS: ATTEND Nurse Practitioner Family
DX: S46.911A Strain of unspecified muscle, fascia and tendon at shoulder and upper arm level, right arm, initial encounter (principal); M25.711 Osteophyte, right shoulder; X58.XXXA Exposure to other specified factors, initial encounter; Y92.9 Unspecified place or not applicable

== ENCOUNTER → 2020-05-14 | Outpatient (REF) | payer MEDICARE, BC ==
[~2020-05-14] MED LIST changes: -AMIO200T PO; +AMIO200T3 PO
[2020-05-14 13:22] LABS: BILIRUBIN,TOTAL 0.6 MG/DL (0.2-1.0); CREATININE FOR GFR 2.86 MG/DL (0.70-1.30); GLOMERULAR FILTRATION RATE 22.5 (>35); THYROID STIMULATING HORMONE 7.44 uIU/ML (0.358-3.740); TOTAL PROTEIN 6.3 GM/DL (6.4-8.2); URIC ACID 6.5 MG/DL (3.5-7.2)
[2020-05-14 15:26] LABS: HEMOGLOBIN A1c 6.6 %
== END ==
LOC: M SFHCCLAY 11:25
PROVIDERS: ATTEND Family Medicine
DX: E11.9 Type 2 diabetes mellitus without complications (principal); E03.9 Hypothyroidism, unspecified; M10.9 Gout, unspecified

== ENCOUNTER → 2020-06-26 | Outpatient (REF) | payer MEDICARE, BC ==
[2020-06-26 17:48] LABS: INR 1.15
[2020-06-26 18:25] LABS: HEPATITIS B CORE ANTIBODY IGM NEGATIVE (NEGATIVE); HEPATITIS B SURFACE ANTIBODY NEGATIVE (POSITIVE); HEPATITIS B SURFACE ANTIGEN NEGATIVE (NEGATIVE); HEPATITIS C VIRUS ABY INDEX 0.1 INDEX (<0.8)
== END ==
LOC: M LAB REF 16:55
PROVIDERS: ATTEND Internal Medicine Nephrology
DX: N18.6 End stage renal disease (principal); R31.9 Hematuria, unspecified; Z11.59 Encounter for screening for other viral diseases

== ENCOUNTER → 2020-06-29 | Outpatient (CLI) | payer MEDICARE, BC ==
[~2020-06-29] MED LIST changes: +LIDOCAINE 1% MDV 20ML VIAL As Ordered ONE; +MIDAZOLAM INJ 2MG/2ML VIAL (J2250 PER 1MG) As Ordered ONE; +VANCOMYCIN 500MG/10ML VIAL As Ordered ONE; +diphenhydrAMINE 50MG/ML VIAL (J1200) As Ordered ONE; +fentaNYL 100 MCG/2 ML INJECTION (J3010) As Ordered ONE
--- NOTE | 2020-06-29 14:16 | IRHP ---
[facility] IR Pre-Procedure H & P General Date of Service: Jun 29, 2020 Procedure: Same Day Surgery Interval History and Physical I have seen the patient and reviewed last H & P performed within 30 days. There is no significant interval change. History of Present Illness Chief Complaint The patient is a 84-year-old male admitted with a reason for visit of Ckd Stage 4. PRE-PROCEDURE DIAGNOSIS: CKD HEART: bradycardiac. pacemaker. LUNGS: normal breathing at rest. ASA Classification ASA Classification: III-Severe systemic dis. Mallampati Score: II NPO: Yes Problems with prior sedation: No Obstructive Sleep Apnea: No Plan moderate sedation Allergies Coded Allergies: MS - Shellfish Allergy (Unverified Allergy, Unknown, HIVES, 11/16/18) Home Medications Scheduled Amiodarone HCl (Amiodarone HCl), 200 MG PO DAILY, (Reported) Atorvastatin Calcium (Lipitor), 10 MG PO QHS, (Reported) Dulaglutide (Trulicity), 0.75 MG SC 1XWK, (Reported) Febuxostat (Uloric), 40 MG PO DAILY, (Reported) Levothyroxine Sodium (Synthroid), 125 MCG PO QAM, (Reported) Linagliptin (Tradjenta), 5 MG PO DAILY, (Reported) Tamsulosin HCl (Flomax), 0.4 MG PO QHS, (Reported) Torsemide (Torsemide), 10 MG PO DAILY, (Reported) Scheduled PRN Albuterol Sulfate (Proair Hfa), 2 PUFF INH Q4H PRN for SHORTNESS OF BREATH, (Rep orted) Benzonatate (Benzonatate), 100 MG PO TID PRN for COUGH, (Reported) Insulin Lispro (Humalog), 10 UNITS SC QAM PRN for BS, (Reported) Nitroglycerin (Nitrostat), 0.4 MG SL NITRO PRN for CHEST PAIN, (Reported) Polyethylene Glycol 3350 (Miralax), 17 GM PO DAILY PRN for CONSTIPATION, (Reported) VS, I&O, 24H, Fishbone Vital Signs/I&O Vital Signs Date Time Temp Pulse Resp B/P (MAP) Pulse Ox O2 Delivery O2 Flow Rate FiO2 06/29/20 14:03 60 16 100 Nasal Cannula 2 06/29/20 12:07 98.1 DAVID PANCHAL MD Jun 29, 2020 14:16
--- NOTE | 2020-06-29 14:18 | POST-OPPD ---
Postoperative Procedure Note Date Of Procedure: Jun 29, 2020 Time Of Procedure: 14:16 IR PermCath placement. IR PermCath insertion under fluoroscopic and ultrasound guidance. IR Ultrasound of the right neck. IR Moderate sedation. Clinical Information:Renal failure. Physician: Dr. Dill. Procedure: The patient was advised of the benefits, risks, and alternatives of the procedure and informed consent was obtained. A time out was performed with verification of the patient's name, MRN, site of procedure, and type of procedure to be performed. The patient was positioned in the supine position on the angiographic table. The site was prepped and draped in the usual sterile fashion. Moderate sedation was performed by the physician including the presence of an independent trained RN who assisted in monitoring the patient's level of consciousness and physiological status. Following the administration of Fentanyl and Versed, the physician spent 45 minutes of continuous [id number] time with the patient. Ultrasound of the neck reveals a patent and compressible right internal jugular vein. A sample driller radiograph reveals cardiomegaly and cardiac device. The neck and anterior chest wall were anesthetized with lidocaine. The right internal jugular vein was accessed using a microintroducer needle via a lateral approach. A 0.018 cope wire was advanced into the superior vena cava, the needle was removed and a microintroducer sheath was placed. An Amplatz wire was then passed into the inferior vena cava. Incisions at the internal jugular access site and anterior chest wall were made using a scalpel. A 19 cm palindrome catheter was inserted through subcutaneous tissues of the chest wall with a tunneling device. The microintroducer sheath was removed and the internal jugular puncture site was upsized with a dilator. A peel-away sheath was placed over the wire and into the superior vena cava. The wire and insert were removed. The catheter was passed into the internal jugular vein via the sheath. The peel away sheath was then removed. The catheter tip was positioned at the right atrium. The puncture site was closed with glue. The catheter was secured in place using a 2-0 Prolene. Both sites were cleansed and sterile dressings were applied. At the conclusion of the procedure, the ports of the catheter aspirated and flushed freely. The catheter was locked with high-dose heparin. The patient tolerated the procedure well and was returned to the PRU in stable condition. EBL: < 5 ml. Complications: None. Conclusion: Successful placement of a 19 cm palindrome PermCath. The catheter is ready for immediate use. Thank you for this referral CC Dr. Rodriguez. DAVID DILL MD Jun 29, 2020 14:18
[2020-06-29 16:00] VITALS: BP 101/67
== END ==
LOC: M IRPRO 11:15
PROVIDERS: ATTEND Radiology Diagnostic Radiology
DX: N18.4 Chronic kidney disease, stage 4 (severe) (principal); I51.7 Cardiomegaly; Z79.899 Other long term (current) drug therapy; Z91.013 Allergy to seafood
CPT/HCPCS: 36558; 99152; 99153; C1750; C1769; C1887; C1894; J1200; J1644; J2250; J3010; J3370

== ENCOUNTER 2020-07-20 09:34 | Inpatient (IN) | payer MEDICARE, BC ==
[~2020-07-20] VITALS: Ht 167.6 cm; Wt 82.7 kg
[~2020-07-20 09:34] MED LIST changes: -LIDOCAINE 1% MDV 20ML VIAL As Ordered ONE; -MIDAZOLAM INJ 2MG/2ML VIAL (J2250 PER 1MG) As Ordered ONE; -VANCOMYCIN 500MG/10ML VIAL As Ordered ONE; -diphenhydrAMINE 50MG/ML VIAL (J1200) As Ordered ONE; -fentaNYL 100 MCG/2 ML INJECTION (J3010) As Ordered ONE
[2020-07-20] MEDS ORDERED: NS 500 ML IV ONE ×2 (09:45→14:45)
[2020-07-20] MEDS ORDERED: NOREPINEPHRINE 4 MG/4 ML AMP As Ordered ONE (09:50)
--- NOTE | 2020-07-20 10:10 | REP ---
INDICATION: Altered Mental Status. COMPARISON: 10/25/2018. TECHNIQUE: Single frontal portable view of the chest is performed. FINDINGS: Cardiomegaly and chronic interstitial changes are stable. No consolidating infiltrate is seen. There is calcification and tortuosity of the thoracic aorta. The mediastinal silhouette is unchanged. A right central venous catheter is present with the tip in the superior vena cava. Left pacemaker is unchanged in position. IMPRESSION: Cardiomegaly and chronic interstitial changes. No consolidating infiltrate. <Electronically signed by Gautam Ruelas > 07/20/20 100
[2020-07-20 10:42] LABS: BASO % 0.3 % (0.0-1.0); EOS % 0.1 % (0.0-3.0); HEMATOCRIT 45.4 % (42.0-52.0); HEMOGLOBIN 14.6 g/dl (13.5-17.5); LYMPH # 0.6 10^3/uL (1.5-5.0); LYMPH % 8.2 % (24.0-44.0); MEAN CORPUSCULAR HEMOGLOBIN 30.2 pg (27.0-33.0); MEAN CORPUSCULAR HGB CONC 32.2 g/dl (32.0-36.5); MONO # 0.8 10^3/uL (0.0-0.8); NEUTROPHILS # 6.1 10^3/uL (1.5-8.5); NEUTROPHILS % 79.9 % (36.0-66.0); PLATELET COUNT, AUTOMATED 135 10^3/uL (150-450); RED BLOOD COUNT 4.83 10^6/uL (4.30-6.10); WHITE BLOOD COUNT 7.7 10^3/uL (4.0-10.0)
--- NOTE | 2020-07-20 10:55 | REPVR ---
PROCEDURE INFORMATION: Exam: CT Head Without Contrast Exam date and time: 07/20/2020 10:32 AM Age: 84 years old Clinical indication: Altered mental status/memory loss TECHNIQUE: Imaging protocol: Computed tomography of the head without contrast. Radiation optimization: All CT scans at this facility use at least one of these dose optimization techniques: automated exposure control; mA and/or kV adjustment per patient size (includes targeted exams where dose is matched to clinical indication); or iterative reconstruction. COMPARISON: No relevant prior studies available. FINDINGS: Brain: Symmetric prominence of the cortical sulci. Small-vessel ischemic change including basal ganglia lacunar infarcts. 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 Cerebral ventricles: Mild ventriculomegaly. Bones/joints: No acute calvarial pathology. Paranasal sinuses: Opacification and wall thickening of the incompletely visualized left maxillary sinus, consistent with chronic sinusitis. Mastoid air cells: No mastoid effusion. Vasculature: Vascular and dural calcification. Soft tissues: Unremarkable soft tissues. IMPRESSION: Atrophy and chronic ischemic change. Electronically signed by: Lawrence Sharif On 07/20/2020 10:55:42 AM
--- NOTE | 2020-07-20 10:58 | REP ---
INDICATION: unresponsive episode, sob, back pain, dialysis pt COMPARISON: None TECHNIQUE: Axial noncontrast images from the thoracic inlet to the upper abdomen with coronal and sagittal reformations. This CT examination was performed using the following dose reduction techniques: Automated exposure control, adjustment of mA and/or kv according to the patient's size, and use of iterative reconstruction technique. FINDINGS: Marked cardiomegaly along with pulmonary vascular congestion/interstitial edema and early ground-glass opacities as well as small to moderate right pleural effusion most compatible with CHF. Areas of pulmonary consolidation in the right upper lobe and to a lesser extent the left lower lobe are nonspecific and may be related to CHF although pneumonia and further active pathology cannot be excluded. A 3 cm right paratracheal lymph node adjacent to the right upper lobe consolidation is also noted. Extensive atherosclerotic changes to the thoracic aorta and coronary arteries noted along with pacemaker. Double-lumen dialysis catheter extends into the right atrium. Musculoskeletal structures demonstrate age-related degenerative changes. IMPRESSION: 1. Cardiomegaly with above findings suggesting CHF. 2. Right suprahilar and left lower lobe small areas of consolidation as well as 3 cm right paratracheal lymph node are nonspecific. Differential diagnosis includes areas of pneumonia, changes related to CHF, and further pathology including malignancy cannot definitively be excluded. Short-term follow-up chest CT may be warranted. <Electronically signed by Maxwell Murphy > 07/20/20 [id number]
--- NOTE | 2020-07-20 11:07 | REP ---
INDICATION: unresponsive episode, sob, back pain, dialysis pt COMPARISON: Outside examination dated 11/16/2018 TECHNIQUE: Axial noncontrast images from the lung bases to the pubic symphysis with coronal and sagittal reformations. This CT examination was performed using the following dose reduction techniques: Automated exposure control, adjustment of mA and/or kv according to the patient's size, and use of iterative reconstruction technique. FINDINGS: There is moderate to significant bilateral perinephric inflammatory stranding (left greater than right). Significant primarily left periaortic retroperitoneal adenopathy at the level of the kidneys is noted including a left periaortic node/mass measuring 5 cm. Right retrocaval adenopathy at the same level measures up to approximately 1.9 cm. The kidneys demonstrate bilateral hypo and hyperdense lesions which are nonspecific by noncontrast evaluation. Findings are most concerning for renal malignancy and metastatic disease. Liver, spleen, pancreas, gallbladder, and bilateral adrenal glands are relatively normal for noncontrast evaluation. The enteric system is without obstruction or acute inflammatory process. Normal appendix identified in the right lower quadrant. Colonic and sigmoid diverticulosis noted without acute diverticulitis. Pelvis demonstrates prostatomegaly with mass effect on the base of the bladder. No ascites. No free air. Atherosclerotic changes to the aorta and vasculature noted without aneurysm. Musculoskeletal structures demonstrate degenerative changes without obvious acute osseous abnormality. IMPRESSION: 1. Changes related to the kidneys as described above with significant retroperitoneal adenopathy including left periaortic node/mass measuring up to 5 cm and right retrocaval lymph node measuring 1.9 cm. Associated perinephric stranding (left greater than right) as well as bilateral renal hypo to hyperdense lesions. Findings are most compatible with malignancy unless proven otherwise. 2. Further chronic nonacute findings as described above. 3. Diverticulosis without acute diverticulitis. 4. Prostatomegaly. <Electronically signed by Maxwell Murphy > 07/20/20 [id number]
[2020-07-20] MEDS ORDERED: LevoFLOXacin IV 750 MG in IV 1 EA IV ONE (11:15)
[2020-07-20 11:18] LABS: INR 1.12; PROTHROMBIN TIME 14.7 SECONDS (12.5-14.3)
[2020-07-20 11:19] LABS: PARTIAL THROMBOPLASTIN TIME 38.8 SECONDS (24.2-38.5)
[2020-07-20] MEDS ORDERED: MIDO5TA PO (11:35)
[2020-07-20] MEDS ORDERED: OPDI1INJ IV (11:35)
[2020-07-20] MEDS ORDERED: TRIA1CR80 TOP (11:35)
[2020-07-20] MEDS ORDERED: TRES1INJ2 SC (11:35)
[2020-07-20] MEDS ORDERED: TRUL0.5I SC (11:35)
[2020-07-20] MEDS ORDERED: SENO8.6T10 PO (11:35)
[2020-07-20] MEDS ORDERED: ACET-908 PO (11:35)
[2020-07-20] MEDS ORDERED: CALC1CAP31 PO (11:35)
[2020-07-20 11:56] LABS: ACETAMINOPHEN LEVEL < 2.0 UG/ML (10.0-30.0); ALBUMIN 3.1 GM/DL (3.2-5.2); ALT/SGPT 20 U/L (12-78); AMYLASE 58 U/L (25-115); BILIRUBIN,DIRECT 0.4 MG/DL (0.0-0.2); BILIRUBIN,TOTAL 1.3 MG/DL (0.2-1.0); C REACTIVE PROTEIN QUANTITATIV 8.38 MG/DL (0.00-0.30); ETHYL ALCOHOL (ETHANOL) < 0.003 % (0.000-0.010); MAGNESIUM LEVEL 2.2 MG/DL (1.8-2.4); SALICYLATE LEVEL < 1.7 MG/DL (5.0-30.0); TOTAL PROTEIN 6.6 GM/DL (6.4-8.2)
[2020-07-20] MEDS ORDERED: DEXTROSE 50% 50 ML SYRINGE IV PRN (14:30)
[2020-07-20] MEDS ORDERED: GLUCAGON INJ 1MG VIAL SC PRN (14:30)
[2020-07-20] MEDS ORDERED: GLUCOSE 4GM CHEW TABLET PO PRN (14:30)
[2020-07-20] MEDS ORDERED: NS 1,000 ML IV SCH (15:45)
[2020-07-20] MEDS ORDERED: VANCOMYCIN HCL 1,000 MG, VIAL MATE ADAPTER 1 EACH in D5W 250 ML IV ONE ×2 (16:00→17:00)
[2020-07-20] MEDS ORDERED: cefTRIAXone SOD 1 GM in D5W MINI-BAG PLUS 50 ML IV SCH (16:00)
[2020-07-20] MEDS: PIPERACILLIN/TAZOBACTAM SOD 2.25 GM in D5W MINI-BAG PLUS 50 ML IV SCH (16:27)
[2020-07-20 16:33] VITALS: BP 102/62
--- NOTE | 2020-07-20 16:49 | HPEPDOC ---
General Date of Admission Jul 20, 2020 at 14:22 Date of Service: Jul 20, 2020 Chief Complaint The patient is a 84-year-old male admitted with a reason for visit of Acute Metabolic Encephalopathy/Esrd. Source: Family, RN/MD History of Present Illness 84 year old male Metastatic urothelial cancer of kidney, Severe cardiomyopathy with EF of 20%, Systolic CHF, on HD for fluid management for CHF, Afib, AICD, DM, Chronic hypotension (80/50 usual BP as per Dr Rodriguez), Chronic hypoxic resp failure on oxygen at night presented to the ED for Altered mental status. As per who was at bedside he had 3 HD sessions on Monday, Monday and Monday and was tired after HD yesterday went to sleep in his rocker chair and found him to be confused in the pharmaceutical scientist. He was sliding down his rocker chair and and daughter tried to make him go up properly but he was not comprehending the directions. He was picking at things trying to grab things, not keeping his oxygen on. He could not understand or follow directions. So EMS was called. On site EMS noted his Bp was in 70s, his sugar was OK, he was having periods of apnea during transport. EMS started him on Levophed which was discontinued in the ED. In the ED initially he was put on BIPAP due to periods of apnea however patient could not tolerate it and the wanted it Off. He was placed on high flow oxygen. It was noted that he was having periods of apnea up to a minute then picking up. It looks like he is having Tino serrano breathing. He had CT scan of head which was negative, CT abd, ct chest without contrast. CT chest showed: Marked cardiomegaly along with pulmonary vascular congestion/interstitial edema and early ground-glass opacities as well as small to moderate right pleural effusion most compatible with CHF. Areas of pulmonary consolidation in the right upper lobe and to a lesser extent the left lower lobe are nonspecific and may be related to CHF although pneumonia and further active pathology cannot be excluded. A 3 cm right paratracheal lymph node adjacent to the right upper lobe consolidation is also noted. CT abdomen showed: moderate to significant bilateral perinephric inflammatory stranding (left greater than right). Significant primarily left periaortic retroperitoneal adenopathy at the level of the kidneys is noted including a left periaortic node/mass measuring 5 cm. Right retrocaval adenopathy at the same level measures up to approximately 1.9 cm. The kidneys demonstrate bilateral hypo and hyperdense lesions which are nonspecific by noncontrast evaluation. Findings are most concerning for renal malignancy and metastatic disease On my interview patient seemed to be more responsive he was following commands . He complained of low back pain in the lumber region could not rate it and could not charecterise it, denied any radiation. stated that the pain was going on bad for about 2 weeks. His blood pressure was at 90/50 which was at baseline for him. he was moving all extremities. He would talk a few words mostly yes or no but then fall asleep and have periods of apnea. Patient was admitted for acute metabolic encephalopthy from possible infection or hypoxia or hypotension or brain mets. Source of infection could be pneumonia/ perm cath infection/ urine infection. Home Medications Scheduled Amiodarone HCl (Amiodarone HCl) 200 Mg Tab, 200 MG PO DAILY, (Reported) Atorvastatin Calcium (Lipitor) 10 Mg Tab, 10 MG PO DAILY, (Reported) TAKES IN THE AFTERNOON Calcitriol (Calcitriol) 0.25 Mcg Capsule, 0.25 MCG PO DAILY, (Reported) Dulaglutide (Trulicity) 1.5 Mg/0.5 Ml Pen.injctr, 1.5 MG SC QWEEK, (Reported) MONDAY Febuxostat (Uloric) 40 Mg Tab, 40 MG PO DAILY, (Reported) TAKES IN THE AFTERNOON Insulin Degludec (Tresiba Flextouch U-100) 100 Unit/1 Ml Insuln.pen, 10 UNIT SC QPM, (Reported) Insulin Lispro (Humalog) 100 Unit/Ml Inj, 1 DOSE SC AC, (Reported) PER SLIDING SCALE Levothyroxine Sodium (Synthroid) 125 Mcg Tab, 125 MCG PO QAM, (Reported) Linagliptin (Tradjenta) 5 Mg Tab, 5 MG PO DAILY, (Reported) TAKES IN THE AFTERNOON Midodrine HCl (Midodrine HCl) 5 Mg Tablet, 5 MG PO TID, (Reported) Nivolumab (Opdivo) 40 Mg/4 Ml Vial, 40 MG IV Q4WKS, (Reported) RECEIVES AT [facility] Sennosides/Docusate Sodium (Senokot-S Tablet) 1 Each Tablet, 1 TAB PO BID, (Reported) TAKES AFTERNOON/BEDTIME Tamsulosin HCl (Flomax) 0.4 Mg Cap, 0.4 MG PO QHS, (Reported) Scheduled PRN Acetaminophen (Acetaminophen) 325 Mg Tablet, 650 MG PO Q4H PRN for PAIN, (Reported) Albuterol Sulfate (Proair Hfa) 108 Mcg/Act Aer, 2 PUFF INH Q4H PRN for SHORTNESS OF BREATH, (Reported) Nitroglycerin (Nitrostat) 0.4 Mg Subl, 0.4 MG SL NITRO PRN for CHEST PAIN, (Reported) Triamcinolone Acet (Triamcinolone Acetonide 0.1% Crm) 80 Gm Cream..g., 1 APLCT TOP BID PRN for RASH, (Reported) APPLY TO AREAS OF RASH Allergies Coded Allergies: shellfish derived (Verified Allergy, Unknown, 07/20/20) Past Medical History Medical History Severe cardiomyopathy with EF of 20%, Systolic CHF, ESRD on HD for 2 moths. 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 Hypothyroidism. Chronic gout secondary to chronic kidney disease. History of chronic systolic congestive heart failure has AICD in place BPH. Surgical History Perm cath placement Status post pacemaker placement for sick sinus syndrome. History of carpal tunnel surgery. Back surgery. Meniscal surgery of the knee. Status post mastoidectomy. Nasal tip plasty. CT-guided renal biopsy. Family History FATHER: , DIAGNOSED WITH CANCER MOTHER: , DIAGNOSED WITH CANCER Sister Lung Cancer Social History * Smoker: former Smoker Alcohol: Denies Drugs: denies A-FIB/CHADSVASC A-FIB History Current/History of A-Fib/PAF?: Yes Current PO Anticoag Therapy: No Review of Systems Constitutional: Denies: Chills, Fever, Night Sweats Eyes: Denies: Pain, Vision change ENT: Denies: Head Aches, Ear Pain, Dysphagia Skin: Denies: Rash, Lesions, Breakdown Pulmonary: Denies: Dyspnea, Cough Cardiovascular: Reports: Edema; Denies: Chest Pain, Palpitations, Orthopnea, Paroxysmal Noc. Dyspnea, Lt Headedness Gastrointestinal: Denies: Nausea, Vomiting, Abdominal Pain, Diarrhea Genitourinary: Reports: Dysuria Hematologic: Denies: Bruising, Bleeding Excessively Musculoskeletal: Reports: Back Pain Neurological: Reports: Confusion Physical Examination General Exam: Positive: Cooperative, No Acute Distress, Other (somnolent) Eye Exam: Positive: Conjunctiva & lids normal, EOMI; Negative: Sclera icteric Chest Exam: Positive: Normal air movement, Rales (at both the bases and diminished breath sounds on lory right. ), Other (perm cath present) Heart Exam: Positive: Rate Normal, Regular Rhythm, Normal S1, Normal S2; Negative: Murmurs, Rubs Telemetry: Positive: No significant arrhythmia, Other Telemetry: (all paced) Abdomen Exam: Positive: Normal bowel sounds, Soft; Negative: Tenderness Extremity Exam: Positive: Edema, Other (chronic venous stasis changes); Negative: Clubbing, Cyanosis Skin Exam: Positive: Nl turgor and temperature; Negative: Breakdown, Lesion Neuro Exam: Positive: Other (Moves all 4 extremites, Able to lift all 4 limbs and hold against gravity, no drift. Planters down. ) Psych Exam: Positive: Other (oriented to name, follows commands) Vital Signs Vital Signs Date Time Temp Pulse Resp B/P (MAP) Pulse Ox O2 Delivery O2 Flow Rate FiO2 07/20/20 15:30 98.0 07/20/20 15:15 62 20 93/64 (74) 100 Nasal Cannula 6.0 07/20/20 10:31 50 Laboratory Data Labs 24H Laboratory Tests 2 07/20/20 10:12: Immature Granulocyte % (Auto) 0.5, Neutrophils (%) (Auto) 79.9H, Lymphocytes (%) (Auto) 8.2L, Monocytes (%) (Auto) 11.0H, Eosinophils (%) (Auto) 0.1, Basophils (%) (Auto) 0.3, Neutrophils # (Auto) 6.1, Lymphocytes # (Auto) 0.6L, Monocytes # (Auto) 0.8, Eosinophils # (Auto) 0.0, Basophils # (Auto) 0.0, Nucleated Red Blood Cells % (auto) 0.0, Lactic Acid Level 2.2*H, Magnesium Level 2.2, Total Bilirubin 1.3H, Direct Bilirubin 0.4H, Aspartate Amino Transf (AST/SGOT) 34, Alanine Aminotransferase (ALT/SGPT) 20, Alkaline Phosphatase 133H, Ammonia 21, C-Reactive Protein, Quantitative 8.38H, Total Protein 6.6, Albumin 3.1L, Albumin/Globulin Ratio 0.9, Amylase Level 58, Salicylates Level < 1.7L, Acetaminophen Level < 2.0L, Ethyl Alcohol Level < 0.003 07/20/20 10:17: POC pH (Misc Panel) 7.449, POC Base Excess (Misc Panel) 9.0H, POC Saturated Percent O2 (Misc) 97, POC pO2 (Misc Panel) 85.0, POC pCO2 (Misc Panel) 47.0H, POC HCO3 (Misc Panel) 32.6H, POC Total CO2 (Misc Panel) 34.0H 07/20/20 10:27: POC Total CO2 (Misc Panel) 27.0, POC Glucose (Misc Panel) 130H, POC Sodium (Misc Panel) 137, POC Potassium (Misc Panel) 3.7, POC Chloride (Misc Panel) 100, POC Blood Urea Nitrogen (Misc Panel 17, POC Ionized Calcium (Misc Panel) 4.1L, POC Creatinine (Misc Panel) 1.7H, POC Hematocrit (Misc Panel) 44.0 07/20/20 10:44: POC Troponin I (Misc) 0.27H 07/20/20 10:58: Prothrombin Time 14.7H, Prothromb Time International Ratio 1.12, Activated Partial Thromboplast Time 38.8H 07/20/20 11:06: POC Lactate (Misc Panel) 1.98 07/20/20 11:35: Coronavirus (COVID-19)(PCR) NEGATIVE CBC/BMP Laboratory Tests 07/20/20 10:12 Microbiology Microbiology 07/20/20 Blood Culture, Received Pending 07/20/20 Blood Culture, Received Pending Assessment/Plan 84 year old male Metastatic urothelial cancer of kidney, Severe cardiomyopathy with EF of 20%, Systolic CHF, on HD for fluid management for CHF, Afib, AICD, DM, Chronic hypotension (80/50 usual BP as per Dr Rodriguez), Chronic hypoxic resp failure on oxygen at night presented to the ED for Altered mental status. As per who was at bedside he had 3 HD sessions on Monday, Monday and Monday and was tired after HD yesterday went to sleep in his rocker chair and found him to be confused in the pharmaceutical scientist. He was sliding down his rocker chair and and daughter tried to make him go up properly but he was not comprehending the directions. He was picking at things trying to grab things, not keeping his oxygen on. He could not understand or follow directions. So EMS was called. On site EMS noted his Bp was in 70s, his sugar was OK, he was having periods of apnea during transport. EMS started him on Levophed which was discontinued in the ED. In the ED initially he was put on BIPAP due to periods of apnea however patient could not tolerate it and the wanted it Off. He was placed on high flow oxygen. It was noted that he was having periods of apnea up to a minute then picking up. It looks like he is having Tino serrano breathing. He had CT scan of head which was negative, CT abd, ct chest without contrast. CT chest showed: Marked cardiomegaly along with pulmonary vascular congestion/ interstitial edema and early ground-glass opacities as well as small to moderate right pleural effusion most compatible with CHF. Areas of pulmonary consolidation in the right upper lobe and to a lesser extent the left lower lobe are nonspecific and may be related to CHF although pneumonia and further active pathology cannot be excluded. A 3 cm right paratracheal lymph node adjacent to the right upper lobe consolidation is also noted. CT abdomen showed: moderate to significant bilateral perinephric inflammatory stranding (left greater than right). Significant primarily left periaortic retroperitoneal adenopathy at the level of the kidneys is noted including a left periaortic node/mass thelma suring 5 cm. Right retrocaval adenopathy at the same level measures up to approximately 1.9 cm. The kidneys demonstrate bilateral hypo and hyperdense lesions which are nonspecific by noncontrast evaluation. Findings are most concerning for renal malignancy and metastatic disease On my interview patient seemed to be more responsive he was following commands . He complained of low back pain in the lumber region could not rate it and could not charecterise it, denied any radiation. stated that the pain was going on bad for about 2 weeks. His blood pressure was at 90/50 which was at baseline for him. he was moving all extremities. He would talk a few words mostly yes or no but then fall asleep and have periods of apnea. Patient was admitted for acute metabolic encephalopthy from possible infection or hypoxia or hypotension or brain mets. Source of infection could be pneumonia/ perm cath infection/ urine infection. Acute toxic metabolic encephalopathy Infection/ hypoxia/hypotension during sleep/ CVA/Brain mets will give vanco and zosyn, received about 1 liter of iVF . Cultures ordered Will get CT head with contrast tomorrow before HD Acute on chronic hypoxic respiratory failure probably due to CHF and infection oxygen by nasal canula ? sepsis source of infection could be pneumonia or UTI or permcath Vanco and zosyn DM will not give any insulin as unsure whether will take anything by mouth FS ac and hs. Severe systolic CHF with cardiomyopathy EF of 20% , Has AICD in place. will not give any fluids Continue amiodarone Chronic hypotension due to severe systolic CHF continue midodrine. ESRD patient on HD for fluid management. Hypothyroid synthroid Urothelial renal cancer with mets on immunotherapy. HLD statin held Gout febustat held Plan / VTE VTE Prophylaxis Ordered?: Yes JHON CHRISTENSEN MD Jul 20, 2020 16:49
[2020-07-20] MEDS: MIDODRINE 5 MG TAB PO SCH (16:56)
[2020-07-20] MEDS: AMIODARONE 200 MG TAB (PACERONE) PO SCH (16:56)
[2020-07-20 17:00] VITALS: O2SAT 95
[2020-07-20] MEDS ORDERED: SLF 3 ML SYR IV PRN (17:15)
[2020-07-20] MEDS ORDERED: diphenhydrAMINE 50MG/ML VIAL (J1200) IV ONE (18:45)
[2020-07-20] MEDS ORDERED: HALOPERIDOL 5MG/ML VIAL (J1630 PER 1) IV PRN (18:45)
[2020-07-20 19:00] VITALS: O2SAT 96
[2020-07-20 20:00] VITALS: BP 98/62
[2020-07-20] MEDS: HEPARIN SOD (PORCINE) 5000UNITS/ML 1ML VIAL/SYRINGE SC SCH (21:02)
[2020-07-20] MEDS: SLF 3 ML SYR IV SCH (21:02)
[2020-07-20 22:00] VITALS: O2SAT 94
--- NOTE | 2020-07-20 22:03 | ECGEPIP ---
[facility] - ED Test Date: 2020-07-20 Pat Name: DYLAN DINERO Department: Room: - Gender: Male Hand Cultivator: nohemy purcell : 1935 Requested By: Chavo Restrepo Order Number: [id number] Reading MD: Eddie Archuleta Measurements Intervals [place] Rate: 74 P: -72 WI: 244 QRS: 233 QRSD: 222 T: 82 QT: 493 QTc: 547 Interpretive Statements ELECTRONIC VENTRICULAR PACEMAKER Electronically Signed on 07-20-2020 22:02:55 EST by Eddie Archuleta
[2020-07-20 23:00] VITALS: O2SAT 99
[2020-07-21] VITALS (21 sets, daily range): BP systolic 80–109; BP diastolic 50–70; O2SAT 92–100
[2020-07-21] MEDS: PIPERACILLIN/TAZOBACTAM SOD 2.25 GM in D5W MINI-BAG PLUS 50 ML IV SCH ×4 (01:45→23:45)
[2020-07-21] MEDS: SLF 3 ML SYR IV SCH ×3 (05:28→21:15)
[2020-07-21] MEDS: LEVOTHYROXINE 125MCG TABLET (0.125MG) PO SCH (05:28)
[2020-07-21] MEDS: AMIODARONE 200 MG TAB (PACERONE) PO SCH (08:06)
[2020-07-21] MEDS: MIDODRINE 5 MG TAB PO SCH ×3 (08:06→17:18)
[2020-07-21] MEDS: HEPARIN SOD (PORCINE) 5000UNITS/ML 1ML VIAL/SYRINGE SC SCH ×2 (08:07→20:57)
[2020-07-21 08:52] LABS: CALCIUM LEVEL 9.2 MG/DL (8.8-10.2); CREATININE FOR GFR 2.43 MG/DL (0.70-1.30); GLOMERULAR FILTRATION RATE 27.1 (>35); POTASSIUM SERUM 4.2 MEQ/L (3.5-5.1)
--- NOTE | 2020-07-21 09:12 | CR ---
DATE OF CONSULTATION: 07/20/2020 DICTATED FOR: Destiny Griffith M.D. REASON FOR CONSULTATION: To assist in the management of end-stage renal disease and altered mentation. HISTORY OF PRESENT ILLNESS: Mr. Patton is an 84-year-old gentleman who was brought to the Emergency Room today due to altered mentation. Apparently he had dialysis yesterday and was at his baseline. After reaching home he became slightly confused and through the night his confusion worsened. He was brought to the Emergency Room and was found to have altered mentation. There is no history of falls, fevers or chills. The patient is admitted for further workup and a Nephrology consultation was requested. He was hypotensive in the Emergency Room and did receive a fluid bolus of 500 mL normal saline. He has a known history of metastatic urethral cancer, on immunotherapy, history of severe cardiomyopathy with ejection of 20%, history of AICD placement, history of diabetes and chronic hypertension. He has been on Midodrine due to hypertension. He is receiving hemodialysis via a right internal jugular vein permacath which was started just last month due to advanced renal failure and congestive heart failure which did not respond to diuretics. The patient is still very confused and his is present at the bedside. PAST MEDICAL HISTORY: The patient's past medical history is significant for: 1. Severe cardiomyopathy with ejection fraction of 20%. 2. End-stage renal disease - currently on maintenance hemodialysis. 3. History of chronic hypertension. 4. 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 5. History of atrial fibrillation. 6. History of type diabetes. 7. Hypothyroidism. 8. Chronic gout. 9. History of anemia. PAST SURGICAL HISTORY: The patient's past surgical history is significant for: 1. CT guided biopsy of renal mass. 2. Nasal Septoplasty. 3. History of mastoidectomy. 4. History of back surgery. 5. History of carpal tunnel release. 6. History of pacemaker. 7. AICD placement. 8. Permacath placement. MEDICATIONS: His home medications include: * Amiodarone 200 mg daily. * Atorvastatin 10 mg daily. * Calcitriol 0.25 mcg daily. * Trulicity 1.5 mg once a week. * Uloric 40 mg daily. * Tresiba 10 units daily. * Humalog insulin per sliding scale. * Levothyroxine 125 mcg daily. * Midodrine 5 mg three times daily. * Opdivo 40 mg every 4 weeks. * Senokot-S one tablet twice daily. * Flomax 0.4 mg at bedtime. * Albuterol inhaler as needed. * Nitroglycerin as needed. ALLERGIES: He has an allergy to shellfish. PERSONAL AND SOCIAL HISTORY: The patient is and lives with his . He does not smoke or drink. FAMILY HISTORY: Father is with cancer. Mother with cancer and one sister also has lung cancer. REVIEW OF SYSTEMS: The patient is himself not able to provide reliable information. He was able to recognize me but then he became confused and was not able to interact properly. His is present who reports no fevers or chills. There is no history of falls. There were no reported nosebleed or sinus problems. Cardiovascular system is significant for severe cardiomyopathy and the ejection fraction is 20%. He has severe leg edema and shortness of breath due to his dialysis was initiated recently. Since then his volume status has improved. He has chronic hypertension for which he has been on Midodrine. Blood pressure was low on arrival and he did receive a 500 mL bolus. Respiratory system is negative for hemoptysis or pleuritic type of chest pain. GI system is negative for vomiting or diarrhea. Genitourinary system is significant for benign prostatic hypertrophy. There is no history of hematuria or flank pain. He has known history of left renal mass. Musculoskeletal system is significant for chronic back pain and lower extremity edema. Hematological symptom is significant for anemia. Urological system is significant for altered mentation since yesterday. PHYSICAL EXAMINATION: GENERAL APPEARANCE: Elderly gentleman laying in the bed. He is hyperventilating at times. He wakes up for a short period of time and has incoherent talk. Then he closes his eyes and does not respond to questions appropriately. VITAL SIGNS: Temperature is 98.0 degrees Fahrenheit, heart is 62 per minute and respiratory rate 20 per minute. Blood pressure is now 102/62 mm of mercury and oxygen saturation is 100%. HEENT: His head is atraumatic. NECK: Supple and JVD is not abnormally elevated. A right sided internal jugular vein permacath is in place. HEART: Bruits. Regular S1 and S2. There is no pericardial friction rub. A systolic murmur grade 2/6 is present. LUNGS: Good bilateral air entry and few basilar rales. ABDOMEN: Soft and nontender and bowel sounds are normal. EXTREMITIES: No cyanosis or clubbing. There are superficial ulcers on the lower extremities with mild erythema. NEUROLOGICALLY: He is confused and disoriented. He is moving all limbs and at times he does talk but mostly it is incoherent. LABORATORY DATA: WBC count is 7.7, hemoglobin 14.6 and hematocrit 44.4. Platelets 135. A lactic level is 2.2 and a repeat one is 1.6. Magnesium was 2.2 and total bilirubin 1.3. AST 4, ALT 20, alkaline phosphatase 133 and a C- reactive protein 8.8. Total protein 6.6 and albumin 3.1. Blood gas was done which showed a pH of 7.44, pco2 47 and pO2 85. Glucose 10, sodium 137, and potassium 3.7. BUN 17 and creatinine 1.7. Troponin 0.27. PROBLEMS: 1. Altered mentation, most likely toxic and metabolic encephalopathy. The patient does have a history of metastatic cancer and has been on immunotherapy. I would recommend considering CT scan of head with IV contrast to rule out any possibility of metastatic disease. I would also like to discuss with the patient's oncologist in [place] about possible complication of immunotherapy. A stroke could also be a possibility and a CAT scan should be repeated anyway in another 24 hours. 2. Congestive heart failure - The patient has a known history of severe cardiomyopathy with ejection fraction 20%. His volume status has improved significantly since he started dialysis and we will plan another dialysis session for tomorrow. I would recommend not to give him any further IV fluid due to risk for worsening volume status. He did receive normal saline 500 mL bolus in the Emergency Room due to hypertension. 3. End-stage renal disease - The patient is very well dialyzed and he was dialyzed just yesterday. We will plan another dialysis for tomorrow and his labs will be repeated prior to dialysis. 4. Hypertension - The patient has chronic hypertension and has been on Midodrine. It is also possible that he has some infective process which may have worsened his hypertension and also caused altered mentation. He is being covered with broad spectrum antibiotics. 5. Metastatic urethral cancer - The patient has been on immunotherapy and is followed by Oncology at [facility] in [place], [place]. Thank you for involving me in the care of Mr. Moore. I will follow him along with you. ISRAD
--- NOTE | 2020-07-21 13:46 | IPNPDOC ---
Text Note Date of Service The patient was seen on 07/21/20. NOTE Subjective: No any acute events overnight. Patient patient continues to have some mental confusion in the morning, he is somnolent, follows commands but according to his his mentation is better today. Objective: GENERAL APPEARANCE: Somnolent male HEENT: no scleral icterus, no JVD, EOMI, A right sided internal jugular vein permacath is in place CARDIOVASCULAR: S1S2 LUNGS: CTA ABDOMEN: soft & not tender w palpitation MUSCULOSKELETAL: no cyanosis, no swelling INTEGUMENT: There is redness on tibial part of the left leg NEUROLOGICAL: cranial nerve function from 2-12 intact intact, follows commands Assessment and plan Patient is 84 years old male with past medical history of systolic CHF with ejection fraction of 20%, metastatic urethral cancer - currently on immun otherapy, end-stage renal diseases with dialysis, atrial fibrillation presented hospital with metabolic encephalopathy Metabolic encephalopathy CT head showed Atrophy and chronic ischemic change Differential diagnosis includes stroke, electrolytes imbalance, infection, brain metastases, possible side effects of immunotherapy, infection secondary to possible cellulitis Will repeat CT head today Blood culture negative Will continue Zosyn empirically dc vanco We will check procalcitonin Acute on chronic respiratory failure Resolved Most likely secondary to volume overload Diabetes Insulin sliding scale Diabetes diet Severe systolic CHF with cardiomyopathy EF of 20% , Has AICD in place. Continue amiodarone Chronic hypotension due to severe systolic CHF continue midodrine. ESRD patient on HD for fluid management. Hypothyroid synthroid Urothelial renal cancer with mets on immunotherapy The patient has been on immunotherapy and is followed by Oncology at [facility] in [place], [place]. HLD statin held Gout febustat held VS,Fishbone, I+O VS, Fishbone, I+O Laboratory Tests 07/21/20 08:13 Vital Signs Date Time Temp Pulse Resp B/P (MAP) Pulse Ox O2 Delivery O2 Flow Rate FiO2 07/21/20 12:00 97.8 71 22 96/58 (71) 99 Nasal Cannula 5.0 07/20/20 10:31 50 I&O- Last 24 Hours up to 6 AM 07/21/20 06:00 Intake Total 1040 ml Output Total 0 ml Balance 1040 ml TOBY CHAVEZ DO Jul 21, 2020 13:46
[2020-07-21] MEDS ORDERED: VANCOMYCIN HCL 1,000 MG, VIAL MATE ADAPTER 1 EACH in D5W 250 ML IV SCH (16:00)
--- NOTE | 2020-07-21 16:33 | REPVR ---
PROCEDURE INFORMATION: Exam: CT Head Without Contrast Exam date and time: 07/21/2020 4:27 PM Age: 84 years old Clinical indication: Pain; Headache; Additional info: CVA TECHNIQUE: Imaging protocol: Computed tomography of the head without contrast. Radiation optimization: All CT scans at this facility use at least one of these dose optimization techniques: automated exposure control; mA and/or kV adjustment per patient size (includes targeted exams where dose is matched to clinical indication); or iterative reconstruction. COMPARISON: CT Head without contrast 07/20/2020 10:21 AM FINDINGS: Brain: There are global involutional changes of the brain which are in keeping with the patient's age. Periventricular hypodensities are nonspecific but most likely reflect chronic microvascular ischemic disease. Chronic encephalomalacia in the posterior right frontal lobe. There is no evidence of intracranial hemorrhage. No mass effect or midline shift is seen. No abnormal extra-axial fluid collections are identified. Ruelas-white differentiation is preserved throughout. Cerebral ventricles: There is no abnormal ventricular dilation. Bones/joints: No calvarial fracture is seen. Paranasal sinuses: Mild sinus mucosal disease. No air-fluid levels. Mastoid air cells: There is no mastoid effusion detected. Vasculature: Atherosclerotic vascular disease is noted at the level of the skull base. Soft tissues: Unremarkable. IMPRESSION: 1. No acute hemorrhage, mass effect or midline shift. 2. Chronic encephalomalacia in the posterior right frontal lobe. 3. Age-related involutional changes, with findings of chronic microvascular ischemic disease. Electronically signed by: Nasreen Chao On 07/21/2020 16:33:54 PM
[2020-07-21] MEDS: HumaLOG INSULIN (NovoLOG) PER UNIT SC SCH ×2 (17:29→20:57)
[2020-07-22] VITALS (18 sets, daily range): BP systolic 89–101; BP diastolic 58–72; O2SAT 94–100
[2020-07-22] MEDS: SLF 3 ML SYR IV SCH ×3 (05:25→21:13)
[2020-07-22 05:40] LABS: BASO % 0.4 % (0.0-1.0); EOS % 0.2 % (0.0-3.0); HEMATOCRIT 41.7 % (42.0-52.0); LYMPH # 0.5 10^3/uL (1.5-5.0); LYMPH % 9.1 % (24.0-44.0); MEAN CORPUSCULAR HEMOGLOBIN 29.3 pg (27.0-33.0); MEAN CORPUSCULAR HGB CONC 31.2 g/dl (32.0-36.5); MEAN CORPUSCULAR VOLUME 94.1 fl (80.0-96.0); MONO # 0.6 10^3/uL (0.0-0.8); MONO % 11.2 % (0.0-5.0); NEUTROPHILS # 4.5 10^3/uL (1.5-8.5); NEUTROPHILS % 78.6 % (36.0-66.0); PLATELET COUNT, AUTOMATED 116 10^3/uL (150-450); RED BLOOD COUNT 4.43 10^6/uL (4.30-6.10); WHITE BLOOD COUNT 5.7 10^3/uL (4.0-10.0)
[2020-07-22] MEDS: LEVOTHYROXINE 125MCG TABLET (0.125MG) PO SCH (05:44)
[2020-07-22 05:57] LABS: ALBUMIN 2.5 GM/DL (3.2-5.2); BILIRUBIN,TOTAL 0.8 MG/DL (0.2-1.0); CALCIUM LEVEL 8.9 MG/DL (8.8-10.2); CREATININE FOR GFR 2.39 MG/DL (0.70-1.30); GLOMERULAR FILTRATION RATE 27.7 (>35); MAGNESIUM LEVEL 2.2 MG/DL (1.8-2.4); POTASSIUM SERUM 4.2 MEQ/L (3.5-5.1); TOTAL PROTEIN 5.7 GM/DL (6.4-8.2)
--- NOTE | 2020-07-22 08:01 | IPN ---
NEPHROLOGY PROGRESS NOTE DATE: 07/21/2020 SUBJECTIVE: Mr. Moore is seen this morning at his bedside. His is present in the room. She reports that he did get some sleep at night and was as agitated. This morning he is resting though he is still not able to communicate properly. At times he hyperventilates and then he rests comfortably. PHYSICAL EXAMINATION: VITAL SIGNS: Temperature 97.8 degrees Fahrenheit, heart is 70 per minute, respiratory rate 22 per minute, blood pressure about 96/58 mm of mercury and oxygen saturation is 99% on 4-5 liters of oxygen. HEENT: His head is atraumatic. NECK: Supple and JVD is minimally elevated. HEART: Regular. LUNGS: Clear to auscultation. ABDOMEN: Soft and bowel sounds are normal. EXTREMITIES: Without any cyanosis or clubbing. Left lower extremity edema is 2+ and right lower extremity edema is 1+. NEUROLOGICALLY: He remains confused and unable to communicate. LABORATORY STUDIES: Todays labs show sodium 137, potassium 4.2, CO2 29, BUN 25, and creatinine 2.43. Glucose 107, calcium 9.2. PROBLEMS: 1. End-stage renal disease The patient is due for dialysis today and we will plan to dialyze him this afternoon. It remains to be seen how he is able to cooperate and tolerate dialysis. 2. Congestive heart failure his volume status is reasonably well compensated. He has chronic lower extremity edema which has improved significantly. We will try to remove some fluid if tolerated. 3. Hypotension - The patient has chronic hypotension and blood pressure remains low. He remains on Midodrine 5 mg three times daily. 4. Altered mentation etiology remains uncertain. He did have a CAT scan of head again which did not show any acute hemorrhage or mass. He has chronic encephalomalacia in the posterior right frontal lobe. Age related involutional changes were noted. We feel that his altered mentation is related to toxic and metabolic encephalopathy. He is being treated with broad spectrum antibiotics for possible bacteremia though his blood cultures have been negative so far. We will watch him for the next 24 hours. 5. Metastatic malignancy - The patient has a known history of metastatic cancer and family would consider to take him home if his condition does not improve. I have discussed with the Hospitalist about the possibility of Hospice care. There is some confusion about Hospice care at home. I feel that he is being followed by the [facility] nurse and not by Hospice at home. If his condition does not improve, then we will certainly consider Hospice care with the patient's . TOMASA
[2020-07-22] MEDS: MIDODRINE 5 MG TAB PO SCH ×3 (09:12→17:06)
[2020-07-22] MEDS: AMIODARONE 200 MG TAB (PACERONE) PO SCH (09:12)
[2020-07-22] MEDS: HumaLOG INSULIN (NovoLOG) PER UNIT SC SCH ×4 (09:13→20:36)
[2020-07-22] MEDS: HEPARIN SOD (PORCINE) 5000UNITS/ML 1ML VIAL/SYRINGE SC SCH ×2 (09:13→21:13)
--- NOTE | 2020-07-22 09:58 | CR.PDOC ---
General Date of Consultation: Jul 22, 2020 Referring Provider: JHON CHRISTENSEN MD Primary Care Physician: Joshua Carias Primary Care Physician dionne Attending Physician: A Consultation REASON FOR CONSULTATION/CHIEF COMPLAINT: 84 year old male admitted to [facility] with mental sststus changes following dialysis. He leslie ESRD, severe cardiomyopathy with EF 20%. I was asked to review him for possible palliative care. HISTORY OF PRESENT ILLNESS: Admitted 2 day ago with mental status changes following dialysis. He follows with Dr. Rodriguez for his ESRD. He was exceptionally confused initially, not recognizing his of 68 years and was unable to verbalize his location correctly according to his . This morning he is much more alert and is well oriented. I asked his what their expectations were in terms of his ongoing care and she stated he will continue dialysis, and she wants him to have home health nursing to assist her with his care at home. She stated he was not reasy for hospice and they wish to proceed with regular dialysis at this time. Mr. Patton also has a history of metastatic urothelial cancer and there was some question of brain metastatic disease, but at this point it appears hi mental status changes were more likely due to metabilice encephalopathy. ALLERGIES: Please see below. HOME MEDICATIONS: Please see below. PAST MEDICAL HISTORY: 1. severe cardiomyopathy EF 20% 2. ESRD 3. metastatic urothelial cancer 4. history of AF 5. type 2 DM 6. hypothyroidism 7. gout 8. history of anemia PAST SURGICAL HISTORY: 1. CT guided renal mass biopsy 2. septoplasty 3. mastoidectomy 4. back surgery 5. CTS 6. pacemaker placement 7. AICD placement 8. permacath FAMILY HISTORY: Father: cancer Mother: cancer Siblings: cancer Children: Son- D. 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 GENITOURINARY: denies dysuria, hematuria MUSCULOSKELETAL: some back pain GASTROINTESTINAL: denies n/v/c/d SKIN: some superficial small wounds lower ext NEUROLOGICAL: denies headaches, tremors. Some lower ext weakness PSYCHIATRIC: denies depression anxiety ENDOCRINE: type 2 DM denies hypo/hyperglycemic events HEMATOLOGIC/LYMPHATIC: history metastatic cancer, no painful or swollen nodes ALLERGIC/IMMUNOLOGIC: [NA PHYSICAL EXAMINATION: VITAL SIGNS: Please see below. GENERAL APPEARANCE: Resting comfortably in bed with )[address] Able to make his needs known. HEENT: pharynx clear, no erythema RESPIRATORY: CTA reduced breath sounds bilateral bases CARDIOVASCULAR: syst 2/6 M ABDOMEN: +BS, no rebound or guarding EXTREMITIES: +edema bilateral lower ext., lower legs erythematous with scattered superficial small wounds NEUROLOGICAL: no tremor or cogwheeling PSYCHIATRIC: appears euthymic LABORATORY DATA: Please see below. ASSESSMENT/PLAN: 1. ESRD 2. severe cardiomyopathy Mrs. Patton clearly stated hospice is not currently their plan. He intends to continue dialysis and she further stated "his real estate economist told him he has at least 4 more years for his heart to work since the AICD was placed." She wants home health assistance. Currently their daughter is here from [place] and is helping. He has a MOLST form indicating DNR/DNI, no feeding tubes. I e xplained the purpose of [facility] and left some information with Mrs. Patton. She indicated an outpatient clinic may not be a viable choice for him, however, was happy to have the information in the event he has more problems with symptom management. Should he choose to discontinue dialysis he would certainly be hospice appropriate. At this time, he has no real symptom complaints, indicated he is feeling much better and Mrs. Patton indicated he is basically at his baseline at this time. Vital Signs/I&O Vital Signs Date Time Temp Pulse Resp B/P (MAP) Pulse Ox O2 Delivery O2 Flow Rate FiO2 07/22/20 08:00 97.3 58 18 89/58 (68) 96 Nasal Cannula 1.0 07/20/20 10:31 50 I&O- Last 24 Hours up to 6 AM 07/22/20 06:00 Intake Total 410 ml Output Total 400 ml Balance 10 ml Laboratory Data Labs 24H Laboratory Tests 2 07/21/20 12:05: Bedside Glucose (Misc Panel) 155H 07/21/20 15:07: Procalcitonin 0.29 07/21/20 17:21: Bedside Glucose (Misc Panel) 123H 07/21/20 19:47: Bedside Glucose (Misc Panel) 164H 07/22/20 05:12: Immature Granulocyte % (Auto) 0.5, Neutrophils (%) (Auto) 78.6H, Lymphocytes (%) (Auto) 9.1L, Monocytes (%) (Auto) 11.2H, Eosinophils (%) (Auto) 0.2, Basophils (%) (Auto) 0.4, Neutrophils # (Auto) 4.5, Lymphocytes # (Auto) 0.5L, Monocytes # (Auto) 0.6, Eosinophils # (Auto) 0.0, Basophils # (Auto) 0.0, Nucleated Red Blood Cells % (auto) 0.0, Anion Gap 8, Glomerular Filtration Rate 27.7L, Calcium Level 8.9, Magnesium Level 2.2, Total Bilirubin 0.8, Aspartate Amino Transf (AST/SGOT) 26, Alanine Aminotransferase (ALT/SGPT) 21, Alkaline Phosphatase 112, Total Protein 5.7L, Albumin 2.5L, Albumin/Globulin Ratio 0.8 CBC/BMP Laboratory Tests 07/22/20 05:12 Microbiology Microbiology 07/20/20 Blood Culture - Preliminary, Resulted No growth after 24 hours . All specim... 07/20/20 Blood Culture - Preliminary, Resulted No growth after 24 hours . All specim... Allergies Coded Allergies: shellfish derived (Verified Allergy, Unknown, 07/20/20) Home Medications Scheduled Amiodarone HCl (Amiodarone HCl) 200 Mg Tab, 200 MG PO DAILY, (Reported) Atorvastatin Calcium (Lipitor) 10 Mg Tab, 10 MG PO DAILY, (Reported) TAKES IN THE AFTERNOON Calcitriol (Calcitriol) 0.25 Mcg Capsule, 0.25 MCG PO DAILY, (Reported) Dulaglutide (Trulicity) 1.5 Mg/0.5 Ml Pen.injctr, 1.5 MG SC QWEEK, (Reported) MONDAY Febuxostat (Uloric) 40 Mg Tab, 40 MG PO DAILY, (Reported) TAKES IN THE AFTERNOON Insulin Degludec (Tresiba Flextouch U-100) 100 Unit/1 Ml Insuln.pen, 10 UNIT SC QPM, (Reported) Insulin Lispro (Humalog) 100 Unit/Ml Inj, 1 DOSE SC AC, (Reported) PER SLIDING SCALE Levothyroxine Sodium (Synthroid) 125 Mcg Tab, 125 MCG PO QAM, (Reported) Linagliptin (Tradjenta) 5 Mg Tab, 5 MG PO DAILY, (Reported) TAKES IN THE AFTERNOON Midodrine HCl (Midodrine HCl) 5 Mg Tablet, 5 MG PO TID, (Reported) Nivolumab (Opdivo) 40 Mg/4 Ml Vial, 40 MG IV Q4WKS, (Reported) RECEIVES AT [facility] Sennosides/Docusate Sodium (Senokot-S Tablet) 1 Each Tablet, 1 TAB PO BID, (Reported) TAKES AFTERNOON/BEDTIME Tamsulosin HCl (Flomax) 0.4 Mg Cap, 0.4 MG PO QHS, (Reported) Scheduled PRN Acetaminophen (Acetaminophen) 325 Mg Tablet, 650 MG PO Q4H PRN for PAIN, (Reported) Albuterol Sulfate (Proair Hfa) 108 Mcg/Act Aer, 2 PUFF INH Q4H PRN for SHORTNESS OF BREATH, (Reported) Nitroglycerin (Nitrostat) 0.4 Mg Subl, 0.4 MG SL NITRO PRN for CHEST PAIN, (Reported) Triamcinolone Acet (Triamcinolone Acetonide 0.1% Crm) 80 Gm Cream..g., 1 APLCT TOP BID PRN for RASH, (Reported) APPLY TO AREAS OF RASH Eileen [place] [employer] COORDINATOR Jul 22, 2020 09:58
--- NOTE | 2020-07-22 11:58 | IPNPDOC ---
Text Note Date of Service The patient was seen on 07/22/20. NOTE Subjective: Patient is more alert, awake in the morning, he is oriented. 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, end-stage renal diseases with dialysis, atrial fibrillation presented hospital with metabolic encephalopathy Metabolic encephalopathy Resolved CT head showed Atrophy and chronic ischemic change Differential diagnosis includes stroke, electrolytes imbalance, infection, brain metastases, possible side effects of immunotherapy, infection secondary to cellulitis Repeated CT head negative for stroke or acute bleed Blood culture negative DC Zosyn, started doxycycline by mouth dc vanco procalcitonin within normal limit Left leg cellulitis Continue doxycycline by mouth Acute on chronic respiratory failure Resolved Most likely secondary to volume overload Diabetes Insulin sliding scale Diabetes diet Severe systolic CHF with cardiomyopathy EF of 20% , Has AICD in place. Continue amiodarone Chronic hypotension due to severe systolic CHF continue midodrine. ESRD patient on HD for fluid management. Hypothyroid synthroid Urothelial renal cancer with mets on immunotherapy The patient has been on immunotherapy and [place] [facility] [place] HLD statin held Gout febustat held VS,Fishbone, I+O VS, Fishbone, I+O Laboratory Tests 07/22/20 05:12 Vital Signs Date Time Temp Pulse Resp B/P (MAP) Pulse Ox O2 Delivery O2 Flow Rate FiO2 07/22/20 08:00 97.3 58 18 89/58 (68) 96 Nasal Cannula 1.0 07/20/20 10:31 50 I&O- Last 24 Hours up to 6 AM 07/22/20 06:00 Intake Total 410 ml Output Total 400 ml Balance 10 ml TOBY CHAVEZ DO Jul 22, 2020 11:58
[2020-07-22] MEDS: DOXYCYCLINE HYCLATE 100MG TABLET PO SCH ×2 (12:18→21:13)
--- NOTE | 2020-07-22 22:00 | IPN ---
PROGRESS NOTE DATE: 07/22/2020 CHIEF COMPLAINT: SUBJECTIVE: Mr. Patton is seen on his bedside. He is much better today and his mentation has improved significantly. He is talking normal and able to cooperate and answer questions. His reports that he ate his meal 100%. He denies any dyspnea or chest pain. PHYSICAL EXAMINATION: The patient is awake, alert and able to answer questions. He recognized me immediately when I entered his room. Temperature is 98.7 degrees Fahrenheit, heart rate 52 per minute and respiratory rate 20 per minute. Blood pressure 91/60 mmHg and oxygen saturation 99% on 1 liter of oxygen. His head is atraumatic. Face is flushed and no oral thrush or ulcers noted. His neck is supple and jugular venous distention (JVD) is minimally elevated. Heart sounds are regular and lung sounds clear to auscultation. Abdomen is soft and protuberant, but nontender. Bowel sounds are normal. Extremities without any cyanosis or clubbing. Lower extremity edema has improved significantly. Left lower extremity erythema has almost completely resolved. Neurologically, he is wake and alert and almost back to his baseline mentation. Today's lab showed white blood cell count 5.7, hemoglobin 13 and hematocrit 41.7. Sodium 138, potassium 4.2, Co2 26, BUN 24 and creatinine 2.39. Total protein 5.7 and albumin 2.5. PROBLEMS: 1. Altered mentation, most likely due to acute delirium and has improved significantly over the last 24 hours. The patient is not agitated at all and he is now cooperative and able to answer questions appropriately. 2. End-stage renal disease. The patient was dialyzed today for three hours and we plan to dialyze him again for three hours today. Will try to remove about 1 liter of fluid as tolerated. 3. Hypotension, this is a chronic issue and his blood pressure is about at the baseline. He remains on midodrine 5 mg three times a day, which will be continued. 4. Lactic acidosis and possible infection. The patient remains on broad-spectrum antibiotics. So far all cultures have been negative. He did have some erythema on his left leg which has now improved and I suspect he did have some cellulitis. At this point, I will recommend to continue with antibiotics and we can switch him to oral antibiotics at discharge. 5. Metastatic malignancy. The patient did have history of metastatic malignancy and has been on immunotherapy. We repeated CAT scan of his head to rule out any possibility of brain metastasis and it was negative. He will continue with his immunotherapy as an outpatient DISPOSITION: I am optimistic, the patient will be ready for discharge in the next 24 hours. We will monitor him after dialysis today and see how he does.
[2020-07-23] VITALS (9 sets, daily range): BP systolic 90–96; BP diastolic 59–61; O2SAT 90–99
[2020-07-23] MEDS ORDERED: DOXYCYCLINE HYCLATE 100MG TABLET PO SCH
[2020-07-23] MEDS ORDERED: diphenhydrAMINE 25MG CAP PO ONE (00:45)
[2020-07-23] MEDS: SENOKOT S TAB PO SCH ×2 (01:15→07:56)
[2020-07-23 04:24] LABS: BASO % 0.3 % (0.0-1.0); EOS % 0.2 % (0.0-3.0); HEMATOCRIT 40.9 % (42.0-52.0); HEMOGLOBIN 13.1 g/dl (13.5-17.5); LYMPH # 0.5 10^3/uL (1.5-5.0); LYMPH % 7.9 % (24.0-44.0); MEAN CORPUSCULAR HEMOGLOBIN 30.1 pg (27.0-33.0); MONO # 0.6 10^3/uL (0.0-0.8); MONO % 9.6 % (0.0-5.0); NEUTROPHILS # 5.3 10^3/uL (1.5-8.5); NEUTROPHILS % 81.5 % (36.0-66.0); PLATELET COUNT, AUTOMATED 126 10^3/uL (150-450); RED BLOOD COUNT 4.35 10^6/uL (4.30-6.10); WHITE BLOOD COUNT 6.4 10^3/uL (4.0-10.0)
[2020-07-23 04:44] LABS: ALBUMIN 2.5 GM/DL (3.2-5.2); BILIRUBIN,TOTAL 0.8 MG/DL (0.2-1.0); CALCIUM LEVEL 8.8 MG/DL (8.8-10.2); CREATININE FOR GFR 2.27 MG/DL (0.70-1.30); GLOMERULAR FILTRATION RATE 29.4 (>35); POTASSIUM SERUM 4.3 MEQ/L (3.5-5.1); TOTAL PROTEIN 5.8 GM/DL (6.4-8.2)
[2020-07-23] MEDS: SLF 3 ML SYR IV SCH (05:26)
[2020-07-23] MEDS: LEVOTHYROXINE 125MCG TABLET (0.125MG) PO SCH (05:26)
[2020-07-23] MEDS: HEPARIN SOD (PORCINE) 5000UNITS/ML 1ML VIAL/SYRINGE SC SCH (07:55)
[2020-07-23] MEDS: MIDODRINE 5 MG TAB PO SCH ×2 (07:56→12:00)
[2020-07-23] MEDS: DOXYCYCLINE HYCLATE 100MG TABLET PO SCH (07:56)
[2020-07-23] MEDS: AMIODARONE 200 MG TAB (PACERONE) PO SCH (07:56)
[2020-07-23] MEDS: HumaLOG INSULIN (NovoLOG) PER UNIT SC SCH ×2 (07:57→12:00)
[2020-07-23] MEDS ORDERED: DOXY100T PO (10:50)
--- NOTE | 2020-07-23 14:49 | DS.PDOC ---
Discharge Summary General Date of Admission Jul 20, 2020 at 14:22 Date of Discharge 07/23/20 Discharge Summary PROCEDURES PERFORMED DURING STAY: [None]. ADMITTING DIAGNOSES: Metabolic encephalopathy Left leg cellulitis Acute on chronic respiratory failure Severe systolic CHF with cardiomyopathy Chronic hypotension ESRD Diabetes Hypothyroid HLD Urothelial renal cancer Gout DISCHARGE DIAGNOSES: Metabolic encephalopathy Left leg cellulitis Acute on chronic respiratory failure Severe systolic CHF with cardiomyopathy Chronic hypotension ESRD Diabetes Hypothyroid HLD Urothelial renal cancer Gout COMPLICATIONS/CHIEF COMPLAINT: Acute Metabolic Encephalopathy/Esrd. 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, end-stage renal diseases with dialysis, atrial fibrillation presented hospital with metabolic encephalopathy HOSPITAL COURSE: During hospital stay following issues addressed Metabolic encephalopathy Resolved CT head showed Atrophy and chronic ischemic change Differential diagnosis includes stroke, electrolytes imbalance, infection, brain metastases, possible side effects of immunotherapy, infection secondary to cellulitis Repeated CT head negative for stroke or acute bleed Blood culture negative DC Zosyn, started doxycycline by mouth dc vanco procalcitonin within normal limit Left leg cellulitis Continue doxycycline by mouth Acute on chronic respiratory failure Resolved Most likely secondary to volume overload Diabetes Insulin sliding scale Diabetes diet Severe systolic CHF with cardiomyopathy EF of 20% , Has AICD in place. Continue amiodarone Chronic hypotension due to severe systolic CHF continue midodrine. ESRD patient on HD for fluid management. Hypothyroid synthroid Urothelial renal cancer with mets on immunotherapy The patient has been on immunotherapy and is followed by Oncology at [facility] in [place], [place]. HLD statin held Gout febustat held DISCHARGE MEDICATIONS: Please see below. ALLERGIES: Please see below. PHYSICAL EXAMINATION ON DISCHARGE: VITAL SIGNS: Please see below. GENERAL APPEARANCE: Somnolent male HEENT: no scleral icterus, no JVD, EOMI, A right sided internal jugular vein permacath is in place CARDIOVASCULAR: S1S2 LUNGS: CTA ABDOMEN: soft & not tender w palpitation MUSCULOSKELETAL: no cyanosis, no swelling INTEGUMENT: There is redness on tibial part of the left leg NEUROLOGICAL: cranial nerve function from 2-12 intact intact, follows commands LABORATORY DATA: Please see below. IMAGING: [facility] NAME: DYLAN DINERO DATE OF : 1935 AGE: 84 SEX: M REPORT #: [id number] ROOM: ED TECHNOLOGIST: BROWN DOCTOR: Chavo Restrepo MD Ordered for Date&Time: 07/20/20 0947 cc: [~ rep ct ivnm] Service Date&Time: 07/20/20 1032 This report is in Signed status. If this report is in a DRAFT status it has not yet been reviewed by the radio logist for accuracy. Thank you for having your radiology procedures performed at [facility] RADIOLOGY REPORT Date&Time printed: [~ rep prt dt last] [~ rep prt tm last] Page [address] of [address] [id number] RADIOLOGY REPORT This report is in Signed status. If this report is in a DRAFT status it has not yet been reviewed by the radiologist for accuracy. Thank you for having your radiology procedures performed at [facility] RADIOLOGY REPORT Date&Time printed: [~ rep prt dt last] [~ rep prt tm last] Page 1 of 1 INDICATION: unresponsive episode, sob, back pain, dialysis pt COMPARISON: Outside examination dated 11/16/2018 TECHNIQUE: Axial noncontrast images from the lung bases to the pubic symphysis with coronal and sagittal reformations. This CT examination was performed using the following dose reduction techniques: Automated exposure control, adjustment of mA and/or kv according to the patient's size, and use of iterative reconstruction technique. FINDINGS: There is moderate to significant bilateral perinephric inflammatory stranding (left greater than right). Significant primarily left periaortic retroperitoneal adenopathy at the level of the kidneys is noted including a left periaortic node/mass measuring 5 cm. Right retrocaval adenopathy at the same level measures up to approximately 1.9 cm. The kidneys demonstrate bilateral hypo and hyperdense lesions which are nonspecific by noncontrast evaluation. Findings are most concerning for renal malignancy and metastatic disease. Liver, spleen, pancreas, gallbladder, and bilateral adrenal glands are relatively normal for noncontrast evaluation. The enteric system is without obstruction or acute inflammatory process. Normal appendix identified in the right lower quadrant. Colonic and sigmoid diverticulosis noted without acute diverticulitis. Pelvis demonstrates prostatomegaly with mass effect on the base of the bladder. No ascites. No free air. Atherosclerotic changes to the aorta and vasculature noted without aneurysm. Musculoskeletal structures demonstrate degenerative changes without obvious acute osseous abnormality. IMPRESSION: 1. Changes related to the kidneys as described above with significant retroperitoneal adenopathy including left periaortic node/mass measuring up to 5 cm and right retrocaval lymph node measuring 1.9 cm. Associated perinephric stranding (left greater than right) as well as bilateral renal hypo to hyperdense lesions. Findings are most compatible with malignancy unless proven otherwise. 2. Further chronic nonacute findings as described above. 3. Diverticulosis without acute diverticulitis. 4. Prostatomegaly. <Electronically signed by Maxwell Murphy > 07/20/20 1103 DD: Maxwell Murphy MD 07/20/20 105 DT: NAZIA 07/20/20 110 DS: BREANN 07/20/20 10507/20/20 1054 [~ rep ct labl] PROGNOSIS: poor ACTIVITY: [As tolerated]. DIET: regular DISPOSITION: 06 Home Health Service. ITEMS TO FOLLOWUP ON ON OUTPATIENT: Follow-up with unit control clerk, PCP and oncologist DISCHARGE CONDITION: [Stable]. TIME SPENT ON DISCHARGE: Greater than 40 minutes. Vital Signs/I&Os Vital Signs Date Time Temp Pulse Resp B/P (MAP) Pulse Ox O2 Delivery O2 Flow Rate FiO2 07/23/20 09:00 97 Nasal Cannula 1.0 07/23/20 08:00 97.8 60 17 90/59 (69) 07/20/20 10:31 50 I&O- Last 24 Hours up to 6 AM 07/23/20 06:00 Intake Total 1410 ml Output Total 1500 ml Balance -90 ml Laboratory Data Labs 24H Laboratory Tests 2 07/22/20 16:50: Bedside Glucose (Misc Panel) 165H 07/22/20 20:32: Bedside Glucose (Misc Panel) 160H 07/23/20 03:49: Immature Granulocyte % (Auto) 0.5, Neutrophils (%) (Auto) 81.5H, Lymphocytes (%) (Auto) 7.9L, Monocytes (%) (Auto) 9.6H, Eosinophils (%) (Auto) 0.2, Basophils (%) (Auto) 0.3, Neutrophils # (Auto) 5.3, Lymphocytes # (Auto) 0.5L, Monocytes # (Auto) 0.6, Eosinophils # (Auto) 0.0, Basophils # (Auto) 0.0, Nucleated Red Blood Cells % (auto) 0.0, Anion Gap 7L, Glomerular Filtration Rate 29.4L, Calcium Level 8.8, Magnesium Level 2.0, Total Bilirubin 0.8, Aspartate Amino Transf (AST/SGOT) 27, Alanine Aminotransferase (ALT/SGPT) 27, Alkaline Phosphatase 125H, Total Protein 5.8L, Albumin 2.5L, Albumin/Globulin Ratio 0.8 CBC/BMP Laboratory Tests 07/23/20 03:49 FSBS Laboratory Tests Test 07/22/20 16:50 07/22/20 20:32 Range/Units Bedside Glucose (Misc Panel) 165 160 83-110 MG/DL Microbiology Microbiology 07/20/20 Blood Culture - Preliminary, Resulted No Growth after 72 hours. All specime... 07/20/20 Blood Culture - Preliminary, Resulted No Growth after 72 hours. All specime... Discharge Medications Scheduled Amiodarone HCl (Amiodarone HCl) 200 Mg Tab, 200 MG PO DAILY, (Reported) Atorvastatin Calcium (Lipitor) 10 Mg Tab, 10 MG PO DAILY, (Reported) TAKES IN THE AFTERNOON Calcitriol (Calcitriol) 0.25 Mcg Capsule, 0.25 MCG PO DAILY, (Reported) Doxycycline Hyclate (Doxycycline Hyclate) 100 Mg Tablet, 100 MG PO BID Dulaglutide (Trulicity) 1.5 Mg/0.5 Ml Pen.injctr, 1.5 MG SC QWEEK, (Reported) MONDAY Febuxostat (Uloric) 40 Mg Tab, 40 MG PO DAILY, (Reported) TAKES IN THE AFTERNOON Insulin Degludec (Tresiba Flextouch U-100) 100 Unit/1 Ml Insuln.pen, 10 UNIT SC QPM, (Reported) Insulin Lispro (Humalog) 100 Unit/Ml Inj, 1 DOSE SC AC, (Reported) PER SLIDING SCALE Levothyroxine Sodium (Synthroid) 125 Mcg Tab, 125 MCG PO QAM, (Reported) Linagliptin (Tradjenta) 5 Mg Tab, 5 MG PO DAILY, (Reported) TAKES IN THE AFTERNOON Midodrine HCl (Midodrine HCl) 5 Mg Tablet, 5 MG PO TID, (Reported) Nivolumab (Opdivo) 40 Mg/4 Ml Vial, 40 MG IV Q4WKS, (Reported) RECEIVES AT [facility] Sennosides/Docusate Sodium (Senokot-S Tablet) 1 Each Tablet, 1 TAB PO BID, (Reported) TAKES AFTERNOON/BEDTIME Tamsulosin HCl (Flomax) 0.4 Mg Cap, 0.4 MG PO QHS, (Reported) Scheduled PRN Acetaminophen (Acetaminophen) 325 Mg Tablet, 650 MG PO Q4H PRN for PAIN, (Reported) Albuterol Sulfate (Proair Hfa) 108 Mcg/Act Aer, 2 PUFF INH Q4H PRN for SHORTNESS OF BREATH, (Reported) Nitroglycerin (Nitrostat) 0.4 Mg Subl, 0.4 MG SL NITRO PRN for CHEST PAIN, (Reported) Triamcinolone Acet (Triamcinolone Acetonide 0.1% Crm) 80 Gm Cream..g., 1 APLCT TOP BID PRN for RASH, (Reported) APPLY TO AREAS OF RASH Allergies Coded Allergies: shellfish derived (Verified Allergy, Unknown, 07/20/20) TOBY CHAVEZ DO Jul 23, 2020 14:49
== END 2020-07-23 13:20 | disposition home health service (06) | DRG 70 ==
LOC: M ED 09:34 → M ED INP 14:22 → ENRESERV 14:44 → M MS5PR 15:40 → M PCU 16:30
PROVIDERS: ADMIT Internal Medicine Nephrology; ATTEND Internal Medicine
PROC: 5A1D70Z Performance of Urinary Filtration, Intermittent, Less than 6 Hours Per Day (ICD-10-PCS; principal; 2020-07-21)
DX: G93.41 Metabolic encephalopathy (principal); N18.6 End stage renal disease; J96.21 Acute and chronic respiratory failure with hypoxia; I50.22 Chronic systolic (congestive) heart failure; I42.9 Cardiomyopathy, unspecified; C68.0 Malignant neoplasm of urethra; I13.2 Hypertensive heart and chronic kidney disease with heart failure and with stage 5 chronic kidney disease, or end stage renal disease; E87.2 Acidosis; L03.116 Cellulitis of left lower limb; N40.0 Benign prostatic hyperplasia without lower urinary tract symptoms; M10.30 Gout due to renal impairment, unspecified site; I48.91 Unspecified atrial fibrillation; E11.22 Type 2 diabetes mellitus with diabetic chronic kidney disease; Z66 Do not resuscitate; E78.5 Hyperlipidemia, unspecified; I95.89 Other hypotension; Z99.81 Dependence on supplemental oxygen; Z99.2 Dependence on renal dialysis; Z95.810 Presence of automatic (implantable) cardiac defibrillator; Z91.013 Allergy to seafood; Z79.4 Long term (current) use of insulin; Z79.899 Other long term (current) drug therapy; Z87.891 Personal history of nicotine dependence; Z20.828 Contact with and (suspected) exposure to other viral communicable diseases

== ENCOUNTER → 2020-08-06 | Outpatient (REF) | payer MEDICARE, BC ==
[~2020-08-06] MED LIST changes: +ACET-908 PO; +CALC1CAP31 PO; +DOXY100T PO; +MIDO5TA PO; +OPDI1INJ IV; +SENO8.6T10 PO; +TRES1INJ2 SC; +TRIA1CR80 TOP; +TRUL0.5I SC
[2020-08-06 11:33] LABS: HEMOGLOBIN A1c 6.6 %
[2020-08-06 11:48] LABS: BILIRUBIN,TOTAL 0.9 MG/DL (0.2-1.0); CREATININE FOR GFR 2.38 MG/DL (0.70-1.30); GLOMERULAR FILTRATION RATE 27.8 (>35); POTASSIUM SERUM 4.1 MEQ/L (3.5-5.1); THYROID STIMULATING HORMONE 7.53 uIU/ML (0.358-3.740); TOTAL PROTEIN 6.2 GM/DL (6.4-8.2)
== END ==
LOC: M SFHCCLAY 07:41
PROVIDERS: ATTEND Family Medicine
DX: E11.22 Type 2 diabetes mellitus with diabetic chronic kidney disease (principal); E03.9 Hypothyroidism, unspecified

== ENCOUNTER → 2020-11-06 | Outpatient (REF) | payer MEDICARE, BC | LOC: M SFHCCLAY 07:23 | PROVIDERS: ATTEND Family Medicine | DX: E03.9 Hypothyroidism, unspecified (principal) ==

== ENCOUNTER → 2020-11-10 | Outpatient (POV) | payer MEDICARE, BC ==
--- NOTE | 2020-11-12 15:21 | IRPN ---
[facility] IR Progress Note IR Progress Note DATE: Nov 10, 2020 Patient and his agreed to this telephone follow-up. I spent 10 minutes talking to the patient's . Patient's is primary historian for the patient. FOLLOW-UP: 84-year-old male with renal failure and right-sided PermCath placed in June 2020. Patient's states that the PermCath at times works beautifully and it all depends on how, it is taped down. But at times there is difficulty which sounds positional. She reports he does not complain of any pain at the site, fevers or chills. Patient's states she does not want him to have any AV fistula or graft because they have reportedly seen these accessed and cause pain. I explained to the patient that I do not create fistulas or grafts. However, if there is ongoing issues with the right-sided PermCath I may be able to exchange it out over a wire and keep the same tract. I also described that sometimes veins can stenos with long-term catheters and sometimes groin or trans-caval PermCath become necessary. ON EXAMINATION: No video on patient side. IMPRESSION: 84-year-old male with right-sided PermCath which is somewhat positional. Patient has not missed any dialysis. If there is ongoing issues or if patient cannot have dialysis through the existing right PermCath, patient should come back to us for PermCath exchange and/or new placement elsewhere if needed. At this time patient's is happy with the catheter and states that he doesn't need to come in for a procedure. Thank you for this referral Cc Dr. Tanner Rodriguez Allergies Coded Allergies: shellfish derived (Verified Allergy, Unknown, 07/20/20) DAVID PANCHAL MD Nov 12, 2020 15:21
== END ==
LOC: M TMIRPOV 08:23
PROVIDERS: ATTEND Radiology Diagnostic Radiology
DX: N18.6 End stage renal disease (principal); Z95.828 Presence of other vascular implants and grafts

== ENCOUNTER → 2020-12-29 | Outpatient (POV) | payer MEDICARE, BC ==
[~2020-12-29] VITALS: Ht 167.6 cm; Wt 77.3 kg
[~2020-12-29] MED LIST changes: -ACET-908 PO; +ACET-910 PO
[2020-12-29 08:45] VITALS: BP 98/63
--- NOTE | 2020-12-30 09:21 | IRPN ---
[facility] IR Progress Note IR Progress Note DATE: December 29, 2020 FOLLOW-UP: 85-year-old male with CHF, hypotension and chronic kidney disease on long-term dialysis. He is now on dialysis for 6 months all via a PermCath placed in the right IJ. He is felt not to be suitable for fistula creation due to cardiomyopathy. He will need ongoing PermCath access. He has a left-sided cardiac device in place. Current right-sided PermCath placed in June 2020 is being used for dialysis 3 times a week. However, there is now poor blood return from the PermCath and frequent need for TPA administration to unclog the catheter. Frequent jamming of the machine. Patient is referred for PermCath exchange and/or alternative PermCath access. ON EXAMINATION: Right-sided PermCath in place. No cellulitis, discharge or signs of infection. No neck swelling or tenderness. IMPRESSION: Patient with right-sided PermCath placed 6 months ago, requiring frequent TPA and causing problems with dialysis. Patient will be scheduled for a PermCath exchange and/or new PermCath placement at alternative site and/or fibrin sheath stripping or angioplasty if required. We discussed the risks and benefits of the procedure and patient is willing to proceed. We has scheduled the patient for the procedure. Thank you for this referral. Cc Dr. Keyana Rodriguez Allergies Coded Allergies: shellfish derived (Verified Allergy, Unknown, 07/20/20) VS,Fishbone, I+O VS, Fishbone, I+O Vital Signs Date Time Temp Pulse Resp B/P (MAP) Pulse Ox O2 Delivery O2 Flow Rate FiO2 12/29/20 08:45 97.9 64 24 98/63 (75) 99 Room Air DAVID PANCHAL MD December 30, 2020 09:21
== END ==
LOC: M IRPOV 08:30
PROVIDERS: ATTEND Radiology Diagnostic Radiology
DX: N18.9 Chronic kidney disease, unspecified (principal); I50.9 Heart failure, unspecified; I42.9 Cardiomyopathy, unspecified; Z99.2 Dependence on renal dialysis

== ENCOUNTER → 2020-12-30 | Outpatient (CLI) | payer MEDICARE, BC ==
[~2020-12-30] MED LIST changes: +ISOVUE-300 61% 50ML VIAL As Ordered ONE; +LIDOCAINE 1% MDV 20ML VIAL As Ordered ONE; +MIDAZOLAM INJ 2MG/2ML VIAL (J2250 PER 1MG) As Ordered ONE; +ceFAZolin 2 GM/D5W 50 ML IV BAG (J0690 PER 500MG) As Ordered ONE; +diphenhydrAMINE 50MG/ML VIAL (J1200) As Ordered ONE; +fentaNYL 100 MCG/2 ML INJECTION (J3010) As Ordered ONE
--- NOTE | 2020-12-30 12:58 | IRHP ---
[facility] IR Pre-Procedure H & P General Date of Service: December 30, 2020 Procedure: Same Day Surgery Interval History and Physical I have seen the patient and reviewed last H & P performed within 30 days. There is no significant interval change. History of Present Illness Chief Complaint The patient is a 85-year-old male admitted with a reason for visit of Renal Failure. PRE-PROCEDURE DIAGNOSIS: Renal failure HEART: Normal rate. LUNGS: Normal breathing at rest. ASA Classification ASA Classification: III-Severe systemic dis. Mallampati Score: II NPO: Yes Problems with prior sedation: No Obstructive Sleep Apnea: No Plan moderate sedation Allergies Coded Allergies: shellfish derived (Verified Allergy, Unknown, 07/20/20) Home Medications Scheduled Amiodarone HCl (Amiodarone HCl), 200 MG PO DAILY, (Reported) Atorvastatin Calcium (Lipitor), 10 MG PO DAILY, (Reported) Calcitriol (Calcitriol), 0.25 MCG PO DAILY, (Reported) Dulaglutide (Trulicity), 1.5 MG SC QWEEK, (Reported) Febuxostat (Uloric), 40 MG PO DAILY, (Reported) Insulin Degludec (Tresiba Flextouch U-100), 10 UNIT SC QPM, (Reported) Insulin Lispro (Humalog), 1 DOSE SC AC, (Reported) Levothyroxine Sodium (Synthroid), 125 MCG PO QAM, (Reported) Linagliptin (Tradjenta), 5 MG PO DAILY, (Reported) Midodrine HCl (Midodrine HCl), 5 MG PO TID, (Reported) Nivolumab (Opdivo), 40 MG IV Q4WKS, (Reported) Sennosides/Docusate Sodium (Senokot-S Tablet), 1 TAB PO BID, (Reported) Scheduled PRN Acetaminophen (Acetaminophen), 650 MG PO Q4H PRN for PAIN, (Reported) Albuterol Sulfate (Proair Hfa), 2 PUFF INH Q4H PRN for SHORTNESS OF BREATH, (Reported) Nitroglycerin (Nitrostat), 0.4 MG SL NITRO PRN for CHEST PAIN, (Reported) Triamcinolone Acet (Triamcinolone Acetonide 0.1% Crm), 1 APLCT TOP BID PRN for RASH, (Reported) Discontinued Medications Doxycycline Hyclate (Doxycycline Hyclate), 100 MG PO BID Discontinued Reason: Pt states not taking Tamsulosin HCl (Flomax), 0.4 MG PO QHS, (Reported) Discontinued Reason: Pt states not taking VS, I&O, 24H, Fishbone Vital Signs/I&O Vital Signs Date Time Temp Pulse Resp B/P (MAP) Pulse Ox O2 Delivery O2 Flow Rate FiO2 12/30/20 12:30 98.5 65 20 95 Room Air Laboratory Data 24H LABS Laboratory Tests 2 12/30/20 12:38: Bedside Glucose (Misc Panel) 196H DAVID PANCHAL MD December 30, 2020 12:58
[2020-12-30 15:33] VITALS: BP 113/59
--- NOTE | 2021-01-01 12:29 | IRPON ---
IR Postoperative Note Date Of Procedure: December 30, 2020 Time Of Procedure: 16:00 IR Postoperative Note IR Permcath Exchange. IR Perm-catheter exchange using fluoroscopic guidance. IR moderate sedation. Clinical Information:Renal failure. Right-sided PermCath problems with dialysis. Physician: Dr. Dill. Procedure: The patient was advised of the benefits, risks, and alternatives of the procedure and informed consent was obtained. A time out was performed with verification of the patient's name, MRN, site of procedure, and type of procedure to be performed. The patient was positioned in the supine position on the angiographic table. The site was prepped and draped in the usual sterile fashion. Moderate sedation was performed by the physician including the presence of an independent trained RN, who assisted in monitoring the patient's level of consciousness and physiological status. Following the administration of Fentanyl and Versed, the physician spent 45 minutes of continuous [id number] time with the patient. A drama director radiograph reveals a right internal jugular vein Permcath, the tip is retracted to the proximal SVC. The heparin flush was aspirated from the catheter. Two Amplatz wires were advanced through the catheter into the inferior vena cava under fluoroscopic guidance. The suture holding the catheter in place was cut and blunt dissection of the cuff was performed using curved hemostats. The permcath was removed over the wire. A new 19 cm Glidepath permcath was advanced over the wire using fluoroscopic guidance. The tip was positioned at the right atrium. The wires were then removed and the catheter sutured in position using 2-0 Prolene. Both ports aspirated and flushed easily. High dose heparin was instilled in each lumen. A sterile dressing applied to the site. The patient tolerated the procedure well and was returned to the PRU in stable condition. EBL: < 15 mL. Complications: None. Conclusion: 1. Previous PermCath was not working as the tip was retracted to the proximal SVC. 2. Successful exchange of a preexisting Permcath for a new 19 cm Glidepath Permcath, tip positioned in the right atrium. The catheter is ready for immedi ate use. Thank you for this referral. Cc DAVID Melendrez MD January 01, 2021 12:29
== END ==
LOC: M IRPRO 12:03
PROVIDERS: ATTEND Radiology Diagnostic Radiology
DX: T82.514A Breakdown (mechanical) of infusion catheter, initial encounter (principal); N19 Unspecified kidney failure; Z91.013 Allergy to seafood; Z79.899 Other long term (current) drug therapy; Z79.4 Long term (current) use of insulin; Z79.890 Hormone replacement therapy; Z99.2 Dependence on renal dialysis

== ENCOUNTER → 2021-01-19 | Outpatient (POV) | payer MEDICARE, BC ==
[~2021-01-19] VITALS: Ht 167.6 cm; Wt 73.6 kg
[~2021-01-19] MED LIST changes: -ISOVUE-300 61% 50ML VIAL As Ordered ONE; -LIDOCAINE 1% MDV 20ML VIAL As Ordered ONE; -MIDAZOLAM INJ 2MG/2ML VIAL (J2250 PER 1MG) As Ordered ONE; -ceFAZolin 2 GM/D5W 50 ML IV BAG (J0690 PER 500MG) As Ordered ONE; -diphenhydrAMINE 50MG/ML VIAL (J1200) As Ordered ONE; -fentaNYL 100 MCG/2 ML INJECTION (J3010) As Ordered ONE
[2021-01-19 08:10] VITALS: BP 80/60
--- NOTE | 2021-01-19 14:05 | IRPN ---
[facility] IR Progress Note IR Progress Note DATE: January 19, 2021 FOLLOW-UP: Status post right-sided PermCath exchange. Previous PermCath had retracted and was causing issues at dialysis. Patient getting dialysis through new catheter, without any issues. He did mention one time after the PermCath was exchanged, where tPA had to be used. But he reports that the subsequent 3 more dialysis sessions, went super fast without any issues. ON EXAMINATION: Right-sided PermCath in appropriate position. No redness, tenderness or discharge. IMPRESSION: Doing well status post right-sided PermCath exchange for retracted catheter. Continue dialysis. No further follow-up scheduled unless initiated by patient and or referring provider. Thank you for this referral. Cc Dr. Tanner Rodriguez Allergies Coded Allergies: shellfish derived (Verified Allergy, Unknown, 07/20/20) VS,Fishbone, I+O VS, Fishbone, I+O Vital Signs Date Time Temp Pulse Resp B/P (MAP) Pulse Ox O2 Delivery O2 Flow Rate FiO2 01/19/21 08:10 97.4 68 16 80/60 (67) 97 Room Air DAVID PNACHAL MD January 19, 2021 14:05
== END ==
LOC: M TMIRPOV 07:27
PROVIDERS: ATTEND Radiology Diagnostic Radiology
DX: Z45.2 Encounter for adjustment and management of vascular access device (principal)

== ENCOUNTER → 2021-02-03 | Outpatient (REF) | payer MEDICARE, BC ==
[2021-02-03 19:27] LABS: HEMOGLOBIN A1c 6.5 %
== END ==
LOC: M SFHCCLAY 07:33
PROVIDERS: ATTEND Family Medicine
DX: E11.22 Type 2 diabetes mellitus with diabetic chronic kidney disease (principal); E03.9 Hypothyroidism, unspecified

== ENCOUNTER 2021-04-11 15:43 | Inpatient (IN) | payer MEDICARE, BC ==
[2021-04-11] MEDS ORDERED: HYDROCORTISONE 100 MG/2 ML VIAL (J1720 PER 1) IV ONE (15:55)
[2021-04-11] MEDS ORDERED: PIPERACILLIN/TAZOBACTAM SOD 4.5 GM in D5W MINI-BAG PLUS 50 ML IV ONE (15:55)
[2021-04-11] MEDS ORDERED: NS 1,000 ML IV ONE (15:55)
[2021-04-11] MEDS ORDERED: NOREPINEPHRINE BITARTRATE 8 MG in D5W 492 ML IV SCH (15:55)
[2021-04-11] MEDS ORDERED: ACETAMINOPHEN *IV* 1,000 MG in IV 1 EA IV ONE (16:10)
[2021-04-11] MEDS ORDERED: LIDOCAINE 2% 5ML JELLY UROJET TOP ONE ×2 (16:15→18:20)
--- NOTE | 2021-04-11 16:32 | REP ---
INDICATION: SEPSIS/SHOCK. COMPARISON: 07/20/2020 TECHNIQUE: AP view FINDINGS: The heart is considerably enlarged. There is mild pulmonary venous congestion. A dialysis catheter is in place with the tip in the superior vena cava. Dual pacing leads are in place. There are areas of subsegmental atelectasis in the left lower lung. No pleural effusion. IMPRESSION: Cardiomegaly PE congestive failure PH platelike atelectasis left lower lung. <Electronically signed by Suhail Ruiz > 04/11/21 2320
[2021-04-11 16:52] LABS: HEMATOCRIT 43.5 % (42.0-52.0); HEMOGLOBIN 14.1 g/dl (13.5-17.5); MEAN CORPUSCULAR HGB CONC 32.4 g/dl (32.0-36.5); MEAN CORPUSCULAR VOLUME 98.6 fl (80.0-96.0); RED BLOOD COUNT 4.41 10^6/uL (4.30-6.10); WHITE BLOOD COUNT 13.7 10^3/uL (4.0-10.0)
[2021-04-11 17:06] LABS: ABG BASE EXCESS -7.2 (-2.0-2.0); ABG HCO3 16.2 MEQ/L (22.0-26.0); ABG O2 SATURATION 90.3 % (95.0-99.0); ABG PARTIAL PRESSURE CO2 27.7 mmHg (35.0-45.0); ABG PARTIAL PRESSURE O2 60.5 mmHg (75.0-100.0); ABG STANDARD HCO3 18.5 MEQ/L (22.0-26.0); ABG pH (ARTERIAL) 7.384 UNITS (7.350-7.450)
[2021-04-11 17:26] LABS: PLATELET COUNT, AUTOMATED 63 10^3/uL (150-450)
[2021-04-11 17:27] LABS: ALBUMIN 2.2 GM/DL (3.2-5.2); ALT/SGPT 44 U/L (12-78); AMYLASE 11 U/L (25-115); BILIRUBIN,DIRECT 0.5 MG/DL (0.0-0.2); BILIRUBIN,TOTAL 1.3 MG/DL (0.2-1.0); BLOOD UREA NITROGEN 54 MG/DL (7-18); CALCIUM LEVEL 8.6 MG/DL (8.8-10.2); CARBON DIOXIDE LEVEL 19 MEQ/L (21-32); CHLORIDE LEVEL 94 MEQ/L (98-107); CK-MB VALUE MASS 1.9 NG/ML (<3.6); CPK CREATINE PHOSPHOKINASE 107 U/L (39-308); CREATININE FOR GFR 4.41 MG/DL (0.70-1.30); GLOMERULAR FILTRATION RATE 13.6 (>35); GLUCOSE, FASTING 253 MG/DL (70-100); MB/CK RELATIVE INDEX 1.78 (< OR =4); POTASSIUM SERUM 6.6 MEQ/L (3.5-5.1); SODIUM LEVEL 126 MEQ/L (136-145); TOTAL PROTEIN 5.7 GM/DL (6.4-8.2); TROPONIN I 0.48 NG/ML (< 0.10)
[2021-04-11 17:30] LABS: LYMPHOCYTES 3 % (16-44); MONOCYTES 3 % (0-5); NEUTROPHILS 90 % (28-66); PLATELET ESTIMATE DECREASED (NORMAL)
[2021-04-11 17:32] LABS: ANISOCYTOSIS 1+
[2021-04-11 17:33] LABS: TOXIC GRANULATION 1+
[2021-04-11] MEDS ORDERED: DEXTROSE 50% 50 ML SYRINGE IV STA (17:40)
[2021-04-11] MEDS ORDERED: SODIUM BICARBONATE 8.4% INJ 50 ML SYRINGE IV STA (17:40)
[2021-04-11] MEDS ORDERED: HumuLIN R (REGULAR) INSULIN (NovoLIN R) **100U/ML** PER UNIT IV STA (17:40)
[2021-04-11] MEDS ORDERED: CALCIUM CHLORIDE 10% 1 GM in D5W 100 ML IV ONE (17:40)
[2021-04-11 17:53] LABS: RSV AMPLIFICATION NEGATIVE (NEGATIVE)
[2021-04-11] MEDS ORDERED: TORS20TA2 PO (18:49)
[2021-04-11] MEDS ORDERED: MIDO10TA PO (18:49)
[2021-04-11] MEDS ORDERED: PATIENT COMMENT (18:56)
[2021-04-11 20:36] LABS: AMORPHOUS SEDIMENT SMALL (NEGATIVE); APPEARANCE, URINE HAZY (CLEAR); BACTERIA, URINE AUTO NEGATIVE (NEGATIVE); BILIRUBIN, URINE AUTO NEGATIVE (NEGATIVE); BLOOD, URINE BLOOD 1+ (NEGATIVE); COLOR, URINE AMBER (YELLOW); GLUCOSE, URINE (UA) AUTO NEGATIVE (NEGATIVE); KETONE, URINE AUTO NEGATIVE (NEGATIVE); LEUKOCYTE ESTERASE, URINE AUTO 1+ (NEGATIVE); NITRITE, URINE AUTO NEGATIVE (NEGATIVE); PROTEIN, URINE AUTO 3+ mg/dL (NEGATIVE); RBC, URINE AUTO 31 /HPF (0-3); SPECIFIC GRAVITY URINE AUTO 1.018 (1.002-1.035); SQUAMOUS EPITHELIAL CELL UR AU 0 /HPF (0-6); UROBILINOGEN, URINE AUTO 0.2 mg/dL (0.0-2.0); WBC, URINE AUTO 21 /HPF (0-3)
[2021-04-11 20:43] LABS: INR 1.54; PROTHROMBIN TIME 18.9 SECONDS (12.7-14.5)
[2021-04-11 20:44] LABS: PARTIAL THROMBOPLASTIN TIME 45.1 SECONDS (25.9-37.0)
--- NOTE | 2021-04-11 20:45 | REPVR ---
PROCEDURE INFORMATION: Exam: CT Head Without Contrast Exam date and time: 04/11/2021 7:42 PM Age: 85 years old Clinical indication: Altered mental status/memory loss TECHNIQUE: Imaging protocol: Computed tomography of the head without contrast. Radiation optimization: All CT scans at this facility use at least one of these dose optimization techniques: automated exposure control; mA and/or kV adjustment per patient size (includes targeted exams where dose is matched to clinical indication); or iterative reconstruction. COMPARISON: CT Head without contrast 07/21/2020 4:13 PM FINDINGS: Brain: There is chronic encephalomalacia involving the right frontal and right parietal lobes, which is similar in appearance compared to the CT head on 07/21/2020. There is a chronic lacunar infarct involving the left external capsule, which is similar in appearance compared to the CT head on 07/21/2020. There are non-specific foci of low attenuation in the periventricular and subcortical white matter, which are likely the sequela of chronic small vessel ischemic injury and are similar in appearance compared to the prior CT head on 07/21/2020. There is no CT evidence for an acute large vessel territorial infarct. No acute intracranial hemorrhage is seen. No mass effect, midline shift, or herniation is noted. Incidental note is made of calcifications along the anterior aspect of the falx, which are similar in appearance compared to the CT head on 07/21/2020. Cerebral ventricles: The ventricles are moderately dilated in proportion to the sulci, which is compatible with moderate generalized cerebral volume loss that is similar in appearance compared to the prior CT head on 07/21/2020. Paranasal sinuses: There is a moderate amount of fluid in the left maxillary sinus. Mastoid air cells: The mastoid air cells are well aerated. Orbital cavity: Incidental note is made of bilateral lens implants. The globes and orbits are intact. Vasculature: There are atherosclerotic calcifications of the intracranial portion of the vertebral arteries and internal carotid arteries. Bones/joints: The skull is intact. No suspicious osteolytic or osteoblastic lesion. Soft tissues: Unremarkable. No soft tissue fluid collection. IMPRESSION: 1. No acute intracranial abnormality. 2. Chronic encephalomalacia involving the right frontal and right parietal lobes and a chronic lacunar infarct involving the left external capsule, which are similar in appearance compared to the CT head on 07/21/2020. 3. Moderate cerebral atrophy and chronic microangiopathic changes, which are stable compared to the CT head on 07/21/2020. Electronically signed by: Andre Jones On 04/11/2021 20:44:14 PM
[2021-04-11] MEDS ORDERED: DEXTROSE 50% 50 ML SYRINGE IV PRN (21:10)
[2021-04-11] MEDS ORDERED: GLUCAGON INJ 1MG VIAL SC PRN (21:10)
[2021-04-11] MEDS ORDERED: GLUCOSE 4GM CHEW TABLET PO PRN (21:10)
[2021-04-11] MEDS ORDERED: MOM 30ML SUSPENSION UDC PO PRN (21:10)
[2021-04-11] MEDS ORDERED: MAALOX 30 ML SUSP *UDC PO PRN (21:10)
[2021-04-11] MEDS ORDERED: HEPARIN SOD (PORCINE) 5000UNITS/ML 1ML VIAL/SYRINGE SC SCH (21:10)
--- NOTE | 2021-04-11 21:17 | REPVR ---
PROCEDURE INFORMATION: Exam: CT Right Upper Extremity Without Contrast, Shoulder Exam date and time: 04/11/2021 7:42 PM Age: 85 years old Clinical indication: Pain; Shoulder; Right; Additional info: Altered mental status. Ssevere pain TECHNIQUE: Imaging protocol: CT of the Right upper extremity without contrast was performed. Exam focused on the shoulder. Radiation optimization: All CT scans at this facility use at least one of these dose optimization techniques: automated exposure control; mA and/or kV adjustment per patient size (includes targeted exams where dose is matched to clinical indication); or iterative reconstruction. COMPARISON: CR SHOULDER COMPLETE 03/11/2020 10:47 AM FINDINGS: Bones/joints: There is no evidence of fracture of the right shoulder. There are severe changes of chondromalacia with bone on bone regarding the right shoulder joint. There is osteophyte formation right AC joint. Soft tissues: Normal. Lymph nodes: There is marked enlargement of the right hilum and stranding increased density. To exclude any possibility of right hilar mass lesion or lymphadenopathy recommend CT scan of the chest with IV contrast for further evaluation of this. IMPRESSION: 1. 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 2. Marked prominence of the right hilum with stranding density. To exclude any possibility of right hilar mass or lymphadenopathy recommend CT scan of the chest with contrast for further evaluation. Electronically signed by: Carlo Manzanares On 04/11/2021 21:16:55 PM
--- NOTE | 2021-04-11 21:26 | HPEPDOC ---
[facility] Medical History & Physical Date of Admission Apr 11, 2021 Date of Service: Apr 11, 2021 Primary Care Physician: Joshua Carias Attending Physician: JACKELINE BARBOUR MD History and Physical TIME OF SERVICE 930PM CHIEF COMPLAINT: confusion HISTORY OF PRESENT ILLNESS: has been suffering with shoulder pain and had an injection on Monday; after dialysis yesterday his shoulder pain reoccurred. This morning his noticed that he was very sleepy and was c/o pain all over. His called EMS who noticed that the patient's blood pressure was low and started Levophed. When he arrived in the ER Minna Finley called Dr.W Rodriguez to discuss the case she recommended being conservative with fluids and c/w Levophed. The patient was give calcium gluconate,sodium bicarbonate, dextrose and insulin for hyperkalemia along with antibiotics to treat a UTI. At the time of my assessment the patient was confused, and kept on asking if he could go home. 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 ALLERGIES: Shell fish HOME MEDICATIONS: Please see below. PHYSICAL EXAMINATION: Vital Signs Date Time Temp Pulse Resp B/P (MAP) Pulse Ox O2 Delivery O2 Flow Rate FiO2 04/11/21 16:18 96.9 70 20 75/52 98 Nasal Cannula 4.0 GENERAL APPEARANCE: well nourished and developed / anxious & agitated keeps on calling out and asking to go home HEENT: EOMI / MM pink but dry / no conjunctival injection or scleral icterus CARDIOVASCULAR: RRR/NMRG LUNGS: CTAB ABDOMEN: contour obese MUSCULOSKELETAL: he has a permacath at the upper chest EXTREMITIES: he his not pale or diaphoretic/ he has ecchymoses on both lower arms NEUROLOGICAL: speech not dysarthric PSYCHIATRIC: alert but confused /not oriented to place or time LABORATORY DATA: See below. 04/11/21 16:40: Neutrophils (%) (Auto) , Nucleated Red Blood Cells % (auto) 0.0, Neutrophils 90H, Band Neutrophils 4, Lymphocytes (Manual) 3L, Monocytes (Manual) 3, Anisocytosis 1+, Toxic Granulation 1+, Platelet Estimate DECREASED, Immature Platelet Fraction 13.1H, Anion Gap 13, Glomerular Filtration Rate 13.6L, Lactic Acid Level 3.7*H, Calcium Level 8.6L, Total Bilirubin 1.3H, Direct Bilirubin 0.5H, Aspartate Amino Transf (AST/SGOT) 65H, Alanine Aminotransferase (ALT/SGPT) 44, Alkaline Phosphatase 124H, Total Creatine Kinase 107, Creatine Kinase MB 1.9, Creatine Kinase MB Relative Index 1.78, Troponin I 0.48H, C-Reactive Protein, Quantitative 36.10H, Total Protein 5.7L, Albumin 2.2L, Albumin/Globulin Ratio 0.6, Amylase Level 11L, Coronavirus (COVID-19)(PCR) NEGATIVE, Influenza Type A (RT-PCR) NEGATIVE, Influenza Type B (RT-PCR) NEGATIVE, Respiratory Syncytial Virus (PCR) NEGATIVE 04/11/21 16:51: Blood Gas Bicarbonate Standard 18.5L, Arterial Blood pH 7.384, Arterial Blood Partial Pressure CO2 27.7L, Arterial Blood Partial Pressure O2 60.5L, Arterial Blood Total CO2 17.0L, Arterial Blood HCO3 16.2L, Arterial Blood Base Excess - 7.2L, Arterial Blood Oxygen Saturation 90.3L 04/11/21 20:19: Lactic Acid Level 3.4*H, Troponin I 0.57H, Prothrombin Time 18.9H, Prothromb Time International Ratio 1.54, Activated Partial Thromboplast Time 45.1H, Urine Color JULES, Urine Appearance HAZY, Urine pH 6.0, Urine Specific [place] 1.018, Urine Protein 3+H, Urine Glucose (Auto)(UA) NEGATIVE, Urine Ketones (Auto) NEGATIVE, Urine Blood 1+H, Urine Nitrite NEGATIVE, Urine Bilirubin NEGATIVE, Urine Urobilinogen 0.2, Urine Leukocyte Esterase (Auto) 1+H, Urine WBC (Auto) 21H, Urine RBC (Auto) 31H, Urine Hyaline Casts (Auto) 0, Urine Bacteria (Auto) NEGATIVE, Urine Squamous Epithelial Cells 0, Urine Amorphous Sediment (Auto) SMALLH, Urine Sperm (Auto) , Ammonia 19 IMAGING: Chest xray "IMPRESSION: Cardiomegaly PE congestive failure PH platelike atelectasis left lower lung." CT head w/o contrast "IMPRESSION: 1. No acute intracranial abnormality. 2. Chronic encephalomalacia involving the right frontal and right parietal lobes and a chronic lacunar infarct involving the left external capsule, which are similar in appearance compared to the CT head on 07/21/2020. 3. Moderate cerebral atrophy and chronic microangiopathic changes, which are stable compared to the CT head on 07/21/2020." CT shoulder "IMPRESSION: 1. 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 2. Marked prominence of the right hilum with stranding density. To exclude any possibility of right hilar mass or lymphadenopathy recommend CT scan of the chest with contrast for further evaluation." MICROBIOLOGY: Respiratory panel is neg /blood cx and Ucx are pending" ASSESSMENT: is an 85 yr old w ESRD, A fib, Sick sinus syndrome w pacemaker, HFrEF 20% w ICD, Hypothyrodism, IDDM, Gout, BPH, Metastatic RCC who presented for evaluation of confusion and was found to have #Metabolic Encephalopathy #Hypotension #Metabolic acidosis with lactic acidosis #Leucocytosis #Possible UTI #Hyperkalemia #Thrombocytopenia #Hyponatremia #Transaminitis #Elevated Troponin His declined central line placement to continue the pressors and elected to transition to CASH OFFICE WORKER; the CASH OFFICE WORKER order set has been placed. We will ask the day time team to place a Hospice consult in the morning. Home Medications Scheduled Atorvastatin Calcium (Lipitor) 10 Mg Tab, 10 MG PO DAILY TAKES IN THE AFTERNOON Calcitriol (Calcitriol) 0.25 Mcg Capsule, 0.25 MCG PO DAILY Dulaglutide (Trulicity) 1.5 Mg/0.5 Ml Pen.injctr, 1.5 MG SC QWEEK MONDAY Insulin Degludec (Tresiba Flextouch U-100) 100 Unit/1 Ml Insuln.pen, 10 UNIT SC QPM Insulin Lispro (Humalog) 100 Unit/Ml Inj, 1 DOSE SC AC PER SLIDING SCALE Levothyroxine Sodium (Synthroid) 125 Mcg Tab, 125 MCG PO QAM Linagliptin (Tradjenta) 5 Mg Tab, 5 MG PO DAILY TAKES IN THE AFTERNOON Midodrine HCl (Midodrine HCl) 10 Mg Tablet, 10 MG PO TID Nivolumab (Opdivo) 40 Mg/4 Ml Vial, 40 MG IV Q4WKS RECEIVES AT [facility], DUE 04/19/21 Sennosides/Docusate Sodium (Senokot-S Tablet) 1 Each Tablet, 1 TAB PO BID TAKES AFTERNOON/BEDTIME Torsemide (Torsemide) 20 Mg Tablet, 20 MG PO 4XWK BID ON SUN, MON, WED, FRI (NON-DIALYSIS DAYS) Scheduled PRN Acetaminophen (Acetaminophen) 325 Mg Tablet, 650 MG PO Q4H PRN for PAIN Albuterol Sulfate (Proair Hfa) 108 Mcg/Act Aer, 2 PUFF INH Q4H PRN for SHORTNESS OF BREATH Nitroglycerin (Nitrostat) 0.4 Mg Subl, 0.4 MG SL NITRO PRN for CHEST PAIN Miscellaneous Medications [Patient Comment] UNABLE TO VERIFY WITH PATIENT. STATES SOME MEDICATIONS HAVE BEEN DISCONTINUED. CALL DIALYSIS ON MON AM Allergies Coded Allergies: shellfish derived (Verified Allergy, Unknown, 07/20/20) A-FIB/CHADSVASC A-FIB History Current/History of A-Fib/PAF?: No Current PO Anticoag Therapy: No JACKELINE BARBOUR MD Apr 11, 2021 21:25
[2021-04-11] MEDS ORDERED: PIPERACILLIN/TAZOBACTAM SOD 3.375 GM in D5W MINI-BAG PLUS 50 ML IV SCH (21:30)
[2021-04-11] MEDS ORDERED: LINEZOLID 600 MG in IV 1 EA IV SCH (21:30)
[2021-04-11 21:49] LABS: OSMOLALITY SERUM 286 MOSM/KG (280-301)
[2021-04-11 22:16] VITALS: BP 67/41
[2021-04-11] MEDS ORDERED: LORazepam 2 MG/ML VIAL IV STA (22:23)
[2021-04-11] MEDS ORDERED: ACETAMINOPHEN TAB 650MG DOSE (2X325MG) PO PRN (22:25)
[2021-04-11] MEDS ORDERED: ATROPINE SULFATE 1% OP SOLN 2 ML BTL SL PRN (22:25)
[2021-04-11] MEDS ORDERED: HYOSCYAMINE SULFATE 0.125 MG SUBL TABLET PO PRN (22:25)
[2021-04-11] MEDS ORDERED: ONDANSETRON 4MG/2ML VIAL IV PRN (22:25)
[2021-04-11] MEDS ORDERED: SCOPOLAMINE 1MG TRANSDERMAL PATCH TOP PRN (22:25)
[2021-04-11] MEDS ORDERED: MORPHINE 2 MG/ML 1ML VIAL (J2270) IV ONE (22:25)
[2021-04-11 22:34] LABS: NT-PRO BNP > 175000 PG/ML (<450); URIC ACID 4.8 MG/DL (3.5-7.2)
[2021-04-12] MEDS ORDERED: HumaLOG INSULIN (NovoLOG) PER UNIT SC SCH
[2021-04-12] MEDS: MORPHINE 2 MG/ML 1ML VIAL (J2270) IV PRN ×2 (01:39→03:52)
[2021-04-12] MEDS: LORazepam 2 MG/ML VIAL IV PRN ×2 (01:40→03:53)
[2021-04-12] MEDS ORDERED: LORazepam 2 MG/ML VIAL As Ordered ONE ×2 (03:44→06:07)
--- NOTE | 2021-04-12 05:37 | ECGEPIP ---
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
--- NOTE | 2021-04-12 06:23 | DS.PDOC ---
Discharge Summary General Date of Admission Apr 11, 2021 at 22:24 Date of Discharge Apr 12 2021 Primary Care Physician: Joshua Carias Attending Physician: JACKELINE BARBOUR MD Specialist/Consultants Involve: RUSS RODRIGUEZ DO Discharge Summary TIME OF SERVICE 615AM PROCEDURES PERFORMED DURING STAY: [None]. ADMITTING DIAGNOSES: #Metabolic Encephalopathy #Hypotension #Metabolic acidosis with lactic acidosis #Leucocytosis #Possible UTI #Hyperkalemia #Thrombocytopenia #Hyponatremia #Transaminitis #Elevated Troponin DISCHARGE DIAGNOSES: #Suspected Cardiac/Respiratory Arrest #Metabolic Encephalopathy #Septic Shock #MRSA Bacteremia #UTI #Metabolic acidosis with lactic acidosis #Hyperkalemia #Thrombocytopenia #Hyponatremia #Transaminitis #Elevated Troponin COMPLICATIONS/CHIEF COMPLAINT: Comfort Measures Only Status. HISTORY OF PRESENT ILLNESS: , 85 yr old w ESRD, A fib, Sick sinus syndrome w pacemaker, HFrEF 20% w ICD, Hypothyroidism, IDDM, Gout, BPH, & Metastatic RCC has been suffering with shoulder pain and had an injection on Monday; after dialysis yesterday his shoulder pain reoccurred. This morning his noticed that he was very sleepy and was c/o pain all over. His called EMS who noticed that the patient's blood pressure was low and started Levophed. When he arrived in the ER Minna Finley started IVF & called Dr.W Rodriguez to discu ss the case, she recommended being conservative with fluids and c/w Levophed. The patient was given calcium gluconate,sodium bicarbonate, dextrose and insulin for hyperkalemia along with antibiotics to treat a UTI.At the time of my assessment the patient was confused, and kept on asking if he could go home. HOSPITAL COURSE: After discussion with her family the patient's elected to transition to OR MANAGER. DISCHARGE MEDICATIONS: Please see below. ALLERGIES: Please see below. PHYSICAL EXAMINATION ON DISCHARGE: GENERAL: unresponsive / cyanotic RESPIRATORY EXAMINATION: not taking any breaths LABORATORY DATA: Please see below. IMAGING: see EMR DISPOSITION: TIME SPENT ON DISCHARGE: 15 minutes. Discharge Medications Scheduled Atorvastatin Calcium (Lipitor) 10 Mg Tab, 10 MG PO DAILY, (Reported) TAKES IN THE AFTERNOON Calcitriol (Calcitriol) 0.25 Mcg Capsule, 0.25 MCG PO DAILY, (Reported) Dulaglutide (Trulicity) 1.5 Mg/0.5 Ml Pen.injctr, 1.5 MG SC QWEEK, (Reported) MONDAY Insulin Degludec (Tresiba Flextouch U-100) 100 Unit/1 Ml Insuln.pen, 10 UNIT SC QPM, (Reported) Insulin Lispro (Humalog) 100 Unit/Ml Inj, 1 DOSE SC AC, (Reported) PER SLIDING SCALE Levothyroxine Sodium (Synthroid) 125 Mcg Tab, 125 MCG PO QAM, (Reported) Linagliptin (Tradjenta) 5 Mg Tab, 5 MG PO DAILY, (Reported) TAKES IN THE AFTERNOON Midodrine HCl (Midodrine HCl) 10 Mg Tablet, 10 MG PO TID, (Reported) Nivolumab (Opdivo) 40 Mg/4 Ml Vial, 40 MG IV Q4WKS, (Reported) RECEIVES AT [facility], DUE 04/19/21 Sennosides/Docusate Sodium (Senokot-S Tablet) 1 Each Tablet, 1 TAB PO BID, (Reported) TAKES AFTERNOON/BEDTIME Torsemide (Torsemide) 20 Mg Tablet, 20 MG PO 4XWK, (Reported) BID ON SUN, MON, WED, FRI (NON-DIALYSIS DAYS) Scheduled PRN Acetaminophen (Acetaminophen) 325 Mg Tablet, 650 MG PO Q4H PRN for PAIN, (Reported) Albuterol Sulfate (Proair Hfa) 108 Mcg/Act Aer, 2 PUFF INH Q4H PRN for SHORTNESS OF BREATH, (Reported) Nitroglycerin (Nitrostat) 0.4 Mg Subl, 0.4 MG SL NITRO PRN for CHEST PAIN, (Reported) Miscellaneous Medications [Patient Comment] , (Reported) UNABLE TO VERIFY WITH PATIENT. STATES SOME MEDICATIONS HAVE BEEN DISCONTINUED. CALL DIALYSIS ON MON AM Allergies Coded Allergies: shellfish derived (Verified Allergy, Unknown, 07/20/20) JACKELINE BARBOUR MD Apr 12, 2021 06:22
[2021-04-12] MEDS ORDERED: MIDODRINE 5 MG TAB PO ONE (08:00)
== END 2021-04-12 10:30 | disposition expired | DRG 951 ==
LOC: M ED 15:43 → M ED INP 22:24 → M MSPAV 04-12 01:15
PROVIDERS: ADMIT Internal Medicine; ATTEND Internal Medicine
DX: Z51.5 Encounter for palliative care (principal); A41.9 Sepsis, unspecified organism; R65.21 Severe sepsis with septic shock; G93.41 Metabolic encephalopathy; N18.6 End stage renal disease; I50.22 Chronic systolic (congestive) heart failure; E87.2 Acidosis; N39.0 Urinary tract infection, site not specified; E87.1 Hypo-osmolality and hyponatremia; C64.9 Malignant neoplasm of unspecified kidney, except renal pelvis; E87.5 Hyperkalemia; D69.6 Thrombocytopenia, unspecified; I48.91 Unspecified atrial fibrillation; Z95.0 Presence of cardiac pacemaker; E03.9 Hypothyroidism, unspecified; E11.9 Type 2 diabetes mellitus without complications; M10.9 Gout, unspecified; N40.0 Benign prostatic hyperplasia without lower urinary tract symptoms; Z79.4 Long term (current) use of insulin; Z79.899 Other long term (current) drug therapy; Z91.013 Allergy to seafood; I95.9 Hypotension, unspecified; D72.829 Elevated white blood cell count, unspecified; R74.01 Elevation of levels of liver transaminase levels; R74.8 Abnormal levels of other serum enzymes